=== PATIENT | male | born 1965 | race Caucasian/White ===

== ENCOUNTER 2024-06-11 07:30 | Outpatient (OUT) | payer BC, SELFPAY ==
--- NOTE | 2024-06-11 | ECG_ITS ---
[facility] Test Date: 2024-06-11 Pat Name: BRITTANY CABALLERO Department: Room: - Gender: Male Manager Mall: : 1965 Requested By: WEI VANCE Order Number: [id number] Reading MD: JULIO TAM Measurements Intervals [place] Rate: 58 P: 69 DC: 217 QRS: 18 QRSD: 93 T: 43 QT: 418 QTc: 414 Interpretive Statements SINUS BRADYCARDIA WITH FIRST DEGREE AV BLOCK Compared to ECG 09/05/2021 13:36:19 First degree AV block now present Sinus rhythm no longer present Myocardial infarct finding no longer present Electronically Signed On 06-11-2024 17:51:30 EDT by JULIO TAM
== END 2024-06-11 07:31 | disposition home or self-care (01) ==
LOC: CARD 07:34
PROVIDERS: PCP Family Medicine; Visit Provider Family Medicine
DX: R00.9 Unspecified abnormalities of heart beat (principal); I10 Essential (primary) hypertension
CPT/HCPCS: 93005

== ENCOUNTER 2024-11-06 12:26 | Outpatient (OUT) | payer BC, SELFPAY ==
--- OUTSIDE RECORDS SUMMARY | 2024-11-06 12:50 | XMS_ITS | CCD ---
Author Organization [facility]ini[facility] Care Team Providers Care Fire Medic Name Role Phone ROSHAN BUTLER Attending Unavailable REQUEST, NONE LISTED Primary Care Unavaila raquel PANDEY, DR BRITTANY Bustillo Consulting Unavailable ROSHAN BUTLER Admitting Unavailable TRAV, DR DEANDRA Wells Consulting Unavailable ROSHAN BUTLER Consulting Unavailable DIPTI GREGG Consulting Unavailable REQUEST, NONE LISTED Primary Care Unavaila KARINA Varner Consulting Unavailable FAYA, AMAYA Admitting Unavailable SHAIKH WANG Attending Unavailable LUKE ROSHAN Consulting Unavailable ROBERT CURTIS Consulting Unavailable Damaso Kramer Consulting Unavailable FAWWAD, AMAYA Consulting Unavailable Marisol Powers Unavailable Nithin Bonds Unavailable John Banda Unavailable Robert Espinoza Unavailable Edel Franklin Unavailable Pat Vance Unavailable MD Pat Vance Primary Care Provider [phone] MD Pat Vance Attending Provider [phone] Pat Vance Attending Unavailable Pat Vance Primary Care Unavailable Pat Vance Admitting Unavailable PAT VANCE Primary Care Physician MD JANIA WILLIAM Attending Unav PAT Regalado Referring Unavailable MD JANIA WILLIAM Attending Camiv MD JANIA Posada Attending Unav ailLM Patel Attending Unavailable Allergies Allergy Classification Reported Allergen(s) Allergy Type Date of Onset Reaction(s) Facility (5 sources) Penicillins; Translations: [penicillins] Drug allergy (disorder) 4 Weal (disorder) [facility] Repository Medications Current Medications Medication Drug Class(es) Dates Sig (Normalized) Sig (Original) amoxicillin 875 mg oral tablet (2 sources) Penicillin-class Antibacterial Start: 08-05-2022 take 1 tablet by mouth every eight hours Amoxicillin 875 MG 1 tablet Orally every 8 hrs for 10 day(s) Jul, Active Augmentin Tablets 875 MG (2 sources) take 1 tablet by mouth twice dari ly Augmentin Tablets 875 MG 1 tab po bid Active buprenorphine 8 mg / naloxone 2 mg sublingual film (7 sources) Partial Opioid Agonist, Opioid Antagonist Start: 08-25-2018 Buprenorphine-Naloxo ne Active 1.5 FILM SUBLINGUAL Twice daily August 25, 2018 12:00am take 1 tablet by jer th every twenty-four hours Buprenorphine HCl-Naloxone HCl 8-2 MG 1 tablet under the tongue and allow to dissolve Sublingual Once a day Active take 1 tablet by jer th every twenty-four hours chlorhexidine gluconate 1.2 mg/ml mouthwash (3 sources) Start: 08-05-2022 take 10 mL by mouth twice daily Peridex 0.12 % gargle 10 ml Mouth/Throat twice daily Jul, Active Start: 09-13-2021 End: 06-01-2024 Chlorhexidine Gluconate (Per idex) 0.12 % mouthwash Discontinued 15 ML BUCCAL Twice daily 600 September 13, 2021 1:00am June 01, 2024 10:05am Use 15 to 20 cc twice a day, oral rinse for 30 seconds until seen by dentist metoprolol tartrate 50 mg oral tablet (12 sources) beta-Adrenergic Anthony Start: 07-27-2024 take 1 mg by mouth twice daily Metoprolol tartrate 50 mg Tab mg tab(s), Oral, BID, Refills(s) 0 Start Date: 07/27/24 Status: Ordered Start: 06-01-2024 take 50 mg by mouth once daily Metoprolol Succinate Active 50 MG PO Daily 90 June 01, 2024 12:00am Start: 08-25-2018 End: 06-01-2024 take 50 mg by mouth twice daily Metoprolol Tartrate Discontinued 50 MG PO Twice daily August 25, 2018 12:00am June 01, 2024 10:22am Metoprolol Succi ana Active tadalafil 2.5 mg oral tablet (10 sources) Phosphodiesterase 5 Inhibitor Start: 07-27-2024 tadalafil 2.5 mg oral tablet Refills(s) 0 Start Date: 07/27/24 Status: Ordered Start: 06-01-2024 take 1 tablet by jer th once daily Tadalafil Active 0 .ROUTE .COMPLEX June 01, 2024 10:22am TAKE 1 TABLET BY MOUTH EVERY DAY Start: 01-08-2024 End: 06-01-2024 take 1 tablet by mouth once daily Tadalafil Discontinued 0 .ROUTE .COMPLEX January 08, 2024 2:40pm June 01, 2024 10:27am TAKE 1 TABLET BY MOUTH EVERY DAY Start: 01-08-2024 End: 01-08-2024 take 2.5 mg by mouth once daily Tadalafil Discontinued 2.5 MG PO Daily January 08, 2024 12:00am January 08, 2024 2:40pm take 1 tablet by jer th once daily Tadalafil 2.5 MG TAKE 1 TABLET BY MOUTH EVERY DAY for 30 Active Completed/Discontinued Medications Medication Drug Class(es) Dates Sig (Normalized) Sig (Original) acetaminophen 325 mg / oxyCODONE hydrochloride 5 mg oral tablet (1 source) Opioid Agonist Start: 09-13-2021 End: 06-01-2024 take 1 tablet by mouth every six hours Oxycodone-Acetamin ophen Discontinued 1 TAB PO Q6H 7 7 September 13, 2021 June 01, 2024 10:05am allopurinol 300 mg oral tablet (8 sources) Xanthine Oxidase Inhibitor Start: 09-07-2021 End: 06-01-2024 take 300 mg by mouth once daily Allopurinol Discontinued 300 MG PO Daily September 07, 2021 1:00am June 01, 2024 10:06am Allopurinol Acti ve amoxicillin 875 mg / clavulanate 125 mg oral tablet (1 source) Penicillin-class Antibacterial Start: 09-13-2021 End: 06-01-2024 take 1 tablet by mouth twice daily Amoxicillin-Pot Clavulanate (Augmentin) 875-125 mg tablet Discontinued 1 TAB PO Twice daily 80 40 September 13, 2021 1:00am June 01, 2024 10:04am ibuprofen 600 mg oral tablet (3 sources) Nonsteroidal Anti-inflammatory Drug Start: 05-29-2024 End: 06-01-2024 take 1 tablet by mouth three times daily at mealtime as needed Ibuprofen Discontinued 600 MG PO Three times daily May 29, 2024 12:00am June 01, 2024 10:05am FreeTextSi tablet with food or milk as needed Orally Three times a day; Note: Source Status: Start; Qty: 21 Tablet; Provider: Rigoberto Quinn Start: 08-05-2022 take 1 tablet by jer three times daily at mealtime as needed Ibuprofen 600 MG 1 tablet with food or milk as needed Orally Three times a day for 7 days Jul, Active tamsulosin hydrochloride 0.4 mg oral capsule (8 sources) alpha-Adrenergic Anthony Start: 09-07-2021 End: 06-01-2024 take 0.4 mg by mouth once daily Tamsulosin Discontinued 0.4 MG PO Daily September 07, 2021 1:00am June 01, 2024 10:06am Tamsulosin HCl A ctive triamcinolone acetonide 40 mg/ml injectable suspension (7 sources) Corticosteroid Start: 01-30-2022 Kenalog -40 mg Jan, 40 mg Start: 01-16-2022 Kenalog-40 Jan, 40 mg Start: 01-16-2022 Kenalog -40 mg Dec, 40 mg Problems Active Problems Problem Classification Problem Date Documented Date Episodic/Chronic Disorders of teeth and jaw (1 source) Periapical abscess without sinus Episodic Essential hypertension (7 sources) Essential (primary) hypertension; Translations: [Hypertensive disorder] Onset: 09-25-2021 06-01-2024 Chronic Gout and other crystal arthropathies (2 sources) Gout, unspecified; Translations: [Gout] Onset: 08-30-2021 10-09-2023 Chronic Heart valve disorders (6 sources) Abnormal cardiac rate; Translations: [Unspecified abnormalities of heart beat] Onset: 06-01-2024 06-01-2024 Episodic Hyperplasia of prostate (5 sources) Large prostate ; Translations: [Benign prostatic hyperplasia without lower urinary tract symptoms] Onset: 07-27-2024 10-09-2023 Chronic Osteoarthritis (6 sources) Primary gonarthrosis, bilateral; Translations: [Bilateral primary osteoarthritis of knee] Onset: 01-16-2022 Resolved: 01-30-2022 Chronic Other aftercare (1 source) Other intermediate (current) drug therapy; Translations: [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] Onset: 08-30-2021 Episodic Other connective tissue disease (1 source) Presence of left artificial hip joint; Translations: [PRESENCE LEFT ARTIFICIAL HIP JOINT] Onset: 09-25-2021 Chronic Other lower respiratory disease (1 source) Personal history of pneumonia (recurrent); Translations: [PERSONAL HX OF PNEUMONIA RECURRENT] Onset: 09-25-2021 Episodic Other lower respiratory disease (3 sources) Dyspnea, unspecified; Translations: [DYSPNEA UNSPECIFIED] Onset: 08-22-2021 Episodic Other male genital disorders (5 sources) Induratio penis plastica; Translations: [Induration penis plastica] Onset: 07-27-2024 06-01-2024 Chronic Other male genital disorders (1 source) Induration penis plastica; Translations: [Peyronie's disease] 06-01-2024 Chronic Other male genital disorders (4 sources) Hemospermia; Translations: [Hematospermia] Onset: 07-27-2024 Episodic Other screening for suspected conditions (not mental disorders or infectious disease) (1 source) Other specified abnormal findings of blood chemistry; Translations: [OTH SPEC ABNORMAL FINDINGS BLD CHEM] Onset: 08-30-2021 Episodic Pleurisy; pneumothorax; pulmonary collapse (6 sources) Pyothorax without fistula; Translations: [Empyema of pleura] Onset: 09-25-2021 Resolved: 10-18-2021 Episodic Pneumonia (except that caused by tuberculosis or sexually transmitted disease) (5 sources) Pneumonia, unspecified organism; Translations: [Unspecified bacterial pneumonia] Onset: 08-30-2021 Resolved: 10-18-2021 Episodic Residual codes; unclassified (1 source) Personal history of other specified conditions; Translations: [PERSONAL HISTORY OTH SPEC CONDITION] Onset: 08-30-2021 Episodic Respiratory failure; insufficiency; arrest (adult) (1 source) Acute respiratory failure with hypoxia; Translations: [ACUTE RESPIRATORY FAIL W/HYPOXIA] Onset: 09-25-2021 Episodic Substance-related disorders (2 sources) Opioid abuse, in remission; Translations: [Opioid abuse, uncomplicated] Onset: 08-30-2021 Chronic Unclassified (1 source) PERSONAL HISTORY OF COVID-19; Translations: [PERSONAL HISTORY OF COVID-19] Onset: 09-25-2021 Unclassified (1 source) POST COVID-19 CONDITION UNSPECIFIED; Translations: [POST COVID-19 CONDITION UNSPECIFIED] Onset: 08-30-2021 Unclassified (1 source) CONTACT W/AND (SUSP) EXPOS COVID-19; Translations: [CONTACT W/AND (SUSP) EXPOS COVID-19] Onset: 08-30-2021 Past or Other Problems Problem Classification Problem Date Documented Da te Episodic/Chronic Immunizations and screening for infectious disease (1 source) Contact with and (suspected) exposure to other viral communicable diseases; Translations: [Contact with and (suspected) exposure to other viral communicable diseases Z20.828] Onset: 08-16-2021 Resolved: 08-16-2021 Episodic Other non-traumatic joint disorders (1 source) Pain in right knee Onset: 01-16-2022 Resolved: 01-16-2022 Episodic Other non-traumatic joint disorders (1 source) Pain in left knee Onset: 01-16-2022 Resolved: 01-16-2022 Episodic Viral infection (1 source) Disease caused by 2019-nCoV; Translations: [COVID-19] Onset: 07-28-2021 10-09-2023 Episodic Viral infection (1 source) COVID-19; Translations: [COVID-19 U07.1] Onset: 08-16-2021 Resolved: 08-16-2021 Results Test Name Value Interpretation Reference Range [facility] Patient Letter [facility] August 10, 2024 BRITTANY CABALLERO [address] [place] [phone] : 1965 Dear Brittany, You missed your 2nd scheduled appointment with Dr Casey on 08/10/24 at 8am. Please note our appointment slots fill quickly. When you fail to cancel or reschedule an appointment the office is unable to fill the appointment slot that was reserved for you. In the future, we ask that you call 24 hours in advance to cancel your appointment. Our current reminder system gives you the opportunity to cancel by responding to our reminder text, phone call or email. You can also call the office to reschedule during normal business hours or use our on-line scheduling portal at your convenience. Our goal is to provide convenient and quality care to all of our patients. We appreciate your consideration regarding any future cancellations. Sincerely, [facility] [phone] x [phone] Patient did cancel his appointment through the automated reminder system, but it was not seen until after his appointment was passed. [facility] Patient Letter [facility] August 03, 2024 BRITTANY CABALLERO [address] [place] [id number] : 1965 Dear Brittany, You missed your scheduled appointment on August 03, 2024 at 9:30am with Dr Casey. Please note our appointment slots fill quickly. When you fail to cancel or reschedule an appointment the office is unable to fill the appointment slot that was reserved for you. In the future, we ask that you call 24 hours in advance to cancel your appointment. Our current reminder system gives you the opportunity to cancel by responding to our reminder text, phone call or email. Our goal is to provide convenient and quality care to all of our patients. We appreciate your consideration regarding any future cancellations. Please call [phone] to reschedule your appointment. Sincerely, [facility] [address] [place] [address] [facility] Ambulatory Visit Summaryon 0 07-27-2024 Ambulatory Visit Summary Ambulatory Visit Summary BRITTANY CABALLERO JR :1965 Visit Date:07/27/2024 Ambulatory Visit Instructions Your Diagnosis Peyronie's disease Hematospermia BPH with urinary obstruction Your Care Team Attending Physician - STEWART TAYLOR, JANIA Primary Care Physician - PAT VANCE MD Referring Physician - PAT VANCE MD This Is Your Medications List Contact prescribing physician if questions or concerns metoprolol (Metoprolol tartrate 50 mg Tab) tadalafil (tadalafil 2.5 mg oral tablet) Procedures Performed Arthroplasty, Hip replacement, Procedure on rectum. Discharge Vitals Blood Pressure 130/82 Height 170 cm Height 67 in Weight 90.5 kg Weight 199.1 lb BMI 31.31 What to do next You Need to Schedule the Following Appointments Follow Up with STEWART TAYLOR, SRINIVASAN DYKES When: Where: Medications What How Much When Instructions Unchanged metoprolol (Metoprolol tartrate 50 mg Tab) 2 times a day Contact prescribing physician if questions or concerns Unchanged tadalafil (tadalafil 2.5 mg oral tablet) Contact prescribing physician if questions or concerns Allergies penicillins (Hives) Problems Ongoing - Any problem that you are currently receiving treatment for. Abnormal heart rate BPH with urinary obstruction Hematospermia Hypertension Peyronie's disease Patient Survey You may receive a survey via text or e-mail asking about your office visit. Please share your experience with us by completing your survey. We appreciate your feedback and thank you for choosing us for your care. Education Materials Prostate-Specific Antigen Test Why am I having this test? The prostate-specific antigen (PSA) test is a screening test for prostate cancer. It can identify early signs of prostate cancer, which may allow for early detection and more effective treatment. Your health care provider may recommend that you have a PSA test starting at age 50 or that you have one earlier if you are at higher risk for prostate cancer. You may also have a PSA test: ? To monitor treatment of prostate cancer. ? To check whether prostate cancer has returned after treatment. What is being tested? This test measures the amount of PSA in your blood. PSA is a protein that is made in the prostate. The prostate naturally produces more PSA as you age, but very high levels may be a sign of a medical condition. What kind of sample is taken? A blood sample is required for this test. It is usually collected by inserting a needle into a blood vessel but can also be collected by sticking a finger with a small needle. Blood for this test should be drawn before having an exam of the prostate that involves digital rectal examination to avoid affecting the results. How do I prepare for this test? Do not ejaculate starting 24 hours before your test, or as long as told by your health care provider, as this can cause an elevation in PSA. Do not undergo any procedures that require manipulation of the prostate, such as biopsy or surgery, for 6 weeks before the test is done as this can cause an elevation in PSA. Tell a health care provider about: ? Any signs you may have of other conditions that can affect PSA levels, such as: ? An enlarged prostate that is not caused by cancer (benign prostatic hyperplasia, or BPH). This condition is very common in older men. ? A prostate or urinary tract infection. ? Any allergies you have. ? All medicines you are taking, including vitamins, herbs, eye drops, creams, and [id number]-[id number] medicines. This also includes: ? Medicines to assist with hair growth, such as finasteride. ? Any recent exposure to a medicine called diethylstilbestrol (BRIDGETT). ? Medicines such as male hormones (like testosterone) or other medicines that raise testosterone levels. ? Any bleeding problems you have. ? Any recent procedures you have had, especially any procedures involving the prostate or rectum. ? Any medical conditions you have. How are the results reported? Your test results will be reported as a value that indicates how much PSA is in your blood. This will be given as nanograms of PSA per milliliter of blood (ng/mL). Your health care provider will compare your results to normal ranges that were established after testing a large group of people (reference ranges). Reference ranges may vary among labs and hospitals. PSA levels vary from person to person and generally increase with age. Because of this variation, there is no single PSA value that is considered normal for everyone. Instead, PSA reference ranges are used to describe whether your PSA levels are considered low or high (elevated). Common reference ranges are: ? Low: 0?2.5 ng/mL. ? Slightly to moderately elevated: 2.6?10.0 ng/mL. ? Moderately elevated: 10.0?19.9 ng/mL. ? Significantly elevated: 20 ng/mL or greater. What do t (more content not included)... Normal [facility] Urology Office/Clinic Noteon 07-27-2024 Urology Office/Clinic Note Urology Office/Clinic Note Chief Complaint peyronies HPI Staff 58 year old male referred by Dr. Vance for Peyronie's disease and induration penis plastica patient takes tadalafil 2.5mg every day . Dysuria: no Incomplete bladder emptying: no Hematuria: no Frequency: no Urgency: no Nocturia: 2x Stream:good stream Leaking: no Post void dripping: no Wearing pads/ Depends: no Urge incontinence: no Stress incontinence: no Incontinence without Sensory Awareness: no Abdominal pain: no Flank pain: no Sexual complaints: pt states that for a few months he has noticed his penis curves to the left, states at first he was able to have intercourse now he is unable to due to the curvature. Denies any pain with erections. History of Present Illness Tests reviewed: reviewed UA and new patient paperwork. I have reviewed the previous health record information and history for this patient from external provider. I have reviewed and verified the staff HPI to be accurate for this encounter. There have been no associated fever, chills, flank pain, or blood in the urine. Denies any urinary infections since last encounter. Review of Systems PHQ Score Initial Depression Screen Score: 0 SCORE ROS - Provider Constitutional: denies weight loss, denies hot flashes. Eyes: denies eye problems. Gastrointestinal: denies nausea, denies vomiting. Cardiovascular: denies chest pain or angina. Integumentary: no dryness Musculoskeletal: denies musculoskeletal symptoms. ENMT: denies otolaryngeal symptoms. Respiratory: no shortness of breath. Heme/Lymph: denies easy bleeding tendency, denies easy bruising tendency. Psychiatric: no confusion, no anxiety. Genitourinary: See HPI. Physical Exam Vitals & Measurements BP: 130/82 HT: 67 in HT: 170 cm WT: 90.5 kg WT: 199.1 lb BMI: 31.31 General Appearance: alert, no distress, well nourished, well developed male. Head: normocephalic . Eyes: normal orbit and globe. ENMT: normal examination of external ears. Genitourinary: Descended BL testes. Normal scrotum. Penis: Circumcised. Descended BL testes. Difficult to examine the severity of curvature without penis being erect. Lymph nodes: no lymphadenopathy. Skin: warm, dry, no bruising. Psychiatric: cooperative, affect appropriate for age, normal judgement, euthymic mood. Assessment/Plan [address] male referred by Dr[address] Vance for Peyronie's Disease and induration penis plastica. Denies hx of kidney stones. Hx of anal fistula. Portions of this record may have been created with voice recognition artificial intelligence software, specifically [employer], [employer] and or [employer]. Substitutions may have occurred due to the inherent limitations of voice recognition and artificial intelligence software. 1. 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 Denies issues with achieving or maintaining erections. Pt states he has always noticed a left sided curvature but it has been very mild, has not had any issues with having intercourse. He has noticed that the curvature has become severe over the last 3-4 months. Denies known trauma. Denies painful intercourse, states that it is not functional . Unable to have intercourse now due to the severity of the curvature. Pt states he has not been able to have intercourse the last few months. Physical exam ~Circumcised. Descended BL testes. Difficult to examine the severity of curvature without the penis being erect. Discussed the possibility of pt having congenital penile curvature. Educated pt on the difference between acute and chronic phase of Peyronie's. Discussed treatment options such as Xiafelx vs surgical management. Counseled on risks and benefits of each. Advised pt to take pictures of the curvature to show me at the next office visit. Educated pt on how to use ruler. Consider artificial erection at next visit if pictures are not sufficient. -Follow up in 1 week 2. Hematospermia (R36.1: Hematospermia) Notices blood in semen intermittently. Denies gross hematuria. UA today negative. 3. BPH with urinary obstruction (N40.1: Benign prostatic hyperplasia with lower urinary tract symptoms) Has not had his PSA checked. Denies family history of prostate CA. Family hx of lung cancer. IPSS 8. UA today negative for infection or blood. Taking Cialis 2.5mg qd for ED. -Will order PSA to be done soon Follow-up With When Contact Information STEWART TAYLOR, JANIA, URL Additional Instructions: 1 week Patient Education Prostate-Specific Antigen Test Patient is a 58-year-old male presenting with new onset concern for Peyronie's disease. Patient states that it developed approximately 3 months ago, no concomitant erectile dysfunction, no pain on intercourse. He states that the curvature is left-sided deviation and is prohibitive for intercourse. He notes intermit (more content not included)... Normal [facility] Comment on above: Result Comment: Elec tronically Signed By: STEWART TAYLORJANIA\.br\Date and Time Signed: 07/27/24 09:47 EDT\.br\Electronically Co-Signed By: Mitzy Grissom\.br\Date and Time Co-Signed: 07/27/24 09:40 EDT CBC AUTO DIFFon 09-07-2021 BASO # 0.0 103/ul Normal 0.0-0.1 [facility] Comment on above: Performed By: #### L ACT #### [facility] [address] [address] [address] Thomas Reina Basophils/100 WBC (Bld) 0.3 % Normal 0.2-2.0 [facility] Comment on above: Performed By: #### L ACT #### [facility] [address] [address] [address] Thomas Reina EO # 0.1 103/ul Normal 0.0-0.7 [facility] Comment on above: Performed By: #### L ACT #### [facility] [address] [address] [address] Thomas Reina Eosinophils/100 WBC (Bld) 0.6 % Critically low 0.9-7.0 [facility] Comment on above: Performed By: #### L ACT #### [facility] [address] [address] [address] Thomas Reina Erythrocyte distribution width (RBC) [Ratio] 13.7 % Normal 11.0-15.0 [facility] Comment on above: Performed By: #### L ACT #### [facility] [address] [address] [address] Thomas Reina Hematocrit (Bld) [Volume fraction] 31.3 % Critically low 42.0-54.0 [facility] Comment on above: Performed By: #### L ACT #### [facility] [address] [address] [address] Thomas Reina Hemoglobin (Bld) [Mass/Vol] 9.8 g/dL Critically low 14.0-18.0 [facility] Comment on above: Performed By: #### L ACT #### [facility] [address] [address] [address] Thomas Reina IG # 0.13 10e3/ul Critically high 0.00-0.03 [facility] Comment on above: Performed By: #### L ACT #### [facility] [address] [place] [address] Dr. Thomas Reina IG % 0.9 % Critically high 0.0-0.5 [facility] Comment on above: Performed By: #### L ACT #### [facility] [address] [place] [address] Dr. Thomas Reina LYMPH # 1.4 103/ul Normal 1.2-3.8 [facility] Comment on above: Performed By: #### L ACT #### [facility] [address] [place] [address] Dr. Thomas Reina Lymphocytes/100 WBC (Bld) 9.2 % Critically low 20.5-60.0 [facility] Comment on above: Performed By: #### L ACT #### [facility] [address] [place] [address] Dr. Thomas Reina MANUAL DIFF REQ NO Normal [facility] Comment on above: Performed By: #### L ACT #### [facility] [address] [place] [address] Dr. Thomas Reina MCH (RBC) [Entitic mass] 27.6 pg Normal 25.9-34.0 [facility] Comment on above: Performed By: #### L ACT #### [facility] [address] [place] [address] Dr. Thomas Reina MCHC (RBC) [Mass/Vol] 31.3 g/dL Normal 29.9-35.2 [facility] Comment on above: Performed By: #### L ACT #### [facility] [address] [place] [address] Dr. Thomas Reina MCV (RBC) [Entitic vol] 88.2 fL Normal 80.0-94.0 [facility] Comment on above: Performed By: #### L ACT #### [facility] [address] [place] [address] Dr. Thomas Reina MONO # 1.1 103/ul Critically high 0.3-0.8 [facility] Comment on above: Performed By: #### L ACT #### [facility] [address] [address] [address] Thomas Reina Monocytes/100 WBC (Bld) 7.3 % Normal 1.7-12.0 [facility] Comment on above: Performed By: #### L ACT #### [facility] [address] [address] [address] Thomas Reina NEUT # 12.4 103/ul Critically high 1.4-6.5 [facility] Comment on above: Performed By: #### L ACT #### [facility] [address] [place] [address] Dr. Thomas Reina Neutrophils/100 WBC (Bld) 81.7 % Critically high 43.0-75.0 [facility] Comment on above: Performed By: #### L ACT #### [facility] [address] [place] [address] Dr. Thomas Reina Platelet mean volume (Bld) [Entitic vol] 10.5 fL Normal 9.5-13.5 [facility] Comment on above: Performed By: #### L ACT #### [facility] [address] [place] [address] Dr. Thomas Reina PLT 314 103/ul Normal 150-450 [facility] Comment on above: Performed By: #### L ACT #### [facility] [address] [place] [address] Dr. Thomas Reina RBC 3.55 106/ul Critically low 4.70-6.10 [facility] Comment on above: Performed By: #### L ACT #### [facility] [id number] Thomas Reina WBC 15.1 103/ul Critically high 4.0-11.0 [facility] Comment on above: Performed By: #### L ACT #### [facility] [address] [place] [address] Dr. Thomas Reina PROF CHEM 8 (BAS METB)on Anion gap [Moles/Vol] 10.5 mmol/L Normal [facility] Comment on above: Performed By: #### L IPA #### [facility] [address] [address] [address] Thomas Reina Calcium [Mass/Vol] 8.1 mg/dL Critically low 8.4-10.2 [facility] Comment on above: Performed By: #### L IPA #### [facility] [address] [place] [address] Dr. Thomas Reina Chloride [Moles/Vol] 102 mmol/L Normal 98-107 [facility] Comment on above: Performed By: #### L IPA #### [facility] [address] [place] [address] Dr. Thomas Reina CO2 [Moles/Vol] 27.1 mmol/L Normal 22.0-30.0 [facility] Comment on above: Performed By: #### L IPA #### [facility] [address] [place] [address] Dr. Thomas Reina Creatinine [Mass/Vol] 0.61 mg/dL Critically low 0.66-1.25 [facility] Comment on above: Performed By: #### L IPA #### [facility] [address] [place] [address] Dr. Thomas Reina EGFR-AF CYMRAES >60 Normal >=60 [facility] Comment on above: Performed By: #### L IPA #### [facility] [address] [place] [address] Dr. Thomas Reina EGFR-NON AF CYMRAES >60 Normal >=60 [facility] Comment on above: Performed By: #### L IPA #### [facility] [address] [place] [address] Dr. Thomas Reina Glucose [Mass/Vol] 110 mg/dL Critically high 74-106 [facility] Comment on above: Performed By: #### L IPA #### [facility] [address] [place] [address] Dr. Thomas Reina Potassium [Moles/Vol] 3.6 mmol/L Normal 3.4-5.0 [facility] Comment on above: Performed By: #### L IPA #### [facility] [address] [address] [address] Thomas Reina Sodium [Moles/Vol] 136 mmol/L Critically low 137-145 [facility] Comment on above: Performed By: #### L IPA #### [facility] [address] [place] [address] Dr. Thomas Reina Urea nitrogen [Mass/Vol] 8.0 mg/dL Critically low 9.0-20.0 [facility] Comment on above: Performed By: #### L IPA #### [facility] [address] [place] [address] Dr. Thomas Reina Urea nitrogen/Creatinine [Mass ratio] 13.1 mg/mg Normal [facility] Comment on above: Performed By: #### L IPA #### [facility] [address] [place] [address] Dr. Thomas Reina VANCOMYCIN TROUGHon 09-07-20 VANCOMYCIN TROUGH 10.1 ug/ml Normal 5.0-20.0 [facility] Comment on above: Performed By: #### C BC #### [facility] [address] [place] [address] Dr. Thomas Reina CBC AUTO DIFFon 09-06-2021 BASO # 0.0 103/ul Normal 0.0-0.1 [facility] Comment on above: Performed By: #### C BC #### [facility] [address] [place] [address] Dr. Thomas Reina Basophils/100 WBC (Bld) 0.2 % Normal 0.2-2.0 [facility] Comment on above: Performed By: #### C BC #### [facility] [address] [place] [address] Dr. Thomas Reina EO # 0.0 103/ul Normal 0.0-0.7 [facility] Comment on above: Performed By: #### C BC #### [facility] [address] [place] [address] Dr. Thomas Reina Eosinophils/100 WBC (Bld) 0.0 % Critically low 0.9-7.0 [facility] Comment on above: Performed By: #### C BC #### [facility] [address] [place] [address] Dr. Thomas Reina Erythrocyte distribution width (RBC) [Ratio] 13.6 % Normal 11.0-15.0 [facility] Comment on above: Performed By: #### C BC #### [facility] [address] [place] [address] Dr. Thomas Reina Hematocrit (Bld) [Volume fraction] 32.5 % Critically low 42.0-54.0 [facility] Comment on above: Performed By: #### C BC #### [facility] [address] [place] [address] Dr. Thomas Reina Hemoglobin (Bld) [Mass/Vol] 10.6 g/dL Critically low 14.0-18.0 [facility] Comment on above: Performed By: #### C BC #### [facility] [address] [place] [address] Dr. Thomas Reina IG # 0.11 10e3/ul Critically high 0.00-0.03 [facility] Comment on above: Performed By: #### C BC #### [facility] [address] [place] [address] Dr. Thomas Reina IG % 0.6 % Critically high 0.0-0.5 [facility] Comment on above: Performed By: #### C BC #### [facility] [address] [place] [address] Dr. Thomas Reina LYMPH # 1.1 103/ul Critically low 1.2-3.8 [facility] Comment on above: Performed By: #### C BC #### [facility] [address] [place] [address] Dr. Thomas Reina Lymphocytes/100 WBC (Bld) 6.2 % Critically low 20.5-60.0 [facility] Comment on above: Performed By: #### C BC #### [facility] [address] [place] [address] Dr. Thomas Reina MANUAL DIFF REQ NO Normal [facility] Comment on above: Performed By: #### C BC #### [facility] [address] [address] [address] Thomas Reina MCH (RBC) [Entitic mass] 28.6 pg Normal 25.9-34.0 [facility] Comment on above: Performed By: #### C BC #### [facility] [address] [address] [address] Thomas Reina MCHC (RBC) [Mass/Vol] 32.6 g/dL Normal 29.9-35.2 [facility] Comment on above: Performed By: #### C BC #### [facility] [address] [address] [address] Thomas Reina MCV (RBC) [Entitic vol] 87.6 fL Normal 80.0-94.0 [facility] Comment on above: Performed By: #### C BC #### [facility] [address] [place] [address] Dr. Thomas Reina MONO # 0.8 103/ul Normal 0.3-0.8 [facility] Comment on above: Performed By: #### C BC #### [facility] [address] [place] [address] Dr. Thomas Reina Monocytes/100 WBC (Bld) 4.6 % Normal 1.7-12.0 [facility] Comment on above: Performed By: #### C BC #### [facility] [address] [address] [address] Thomas Reina NEUT # 15.5 103/ul Critically high 1.4-6.5 [facility] Comment on above: Performed By: #### C BC #### [facility] [address] [address] [address] Thomas Reina Neutrophils/100 WBC (Bld) 88.4 % Critically high 43.0-75.0 [facility] Comment on above: Performed By: #### C BC #### [facility] [address] [place] [address] Dr. Thomas Reina Platelet mean volume (Bld) [Entitic vol] 10.8 fL Normal 9.5-13.5 [facility] Comment on above: Performed By: #### C BC #### [facility] [address] [address] [address] Thomas Reina PLT 332 103/ul Normal 150-450 [facility] Comment on above: Performed By: #### C BC #### [facility] [address] [address] [address] Thomas Reina RBC 3.71 106/ul Critically low 4.70-6.10 [facility] Comment on above: Performed By: #### C BC #### [facility] [address] [address] [address] Thomas Reina WBC 17.6 103/ul Critically high 4.0-11.0 [facility] Comment on above: Performed By: #### C BC #### [facility] [address] [place] [address] Dr. Thomas Reina PROF CHEM 8 (BAS METB)on Anion gap [Moles/Vol] 14.0 mmol/L Normal [facility] Comment on above: Performed By: #### C BC #### [facility] [address] [place] [address] Dr. Thomas Reina Calcium [Mass/Vol] 8.9 mg/dL Normal 8.4-10.2 [facility] Comment on above: Performed By: #### C BC #### [facility] [address] [address] [address] Thomas Reina Chloride [Moles/Vol] 100 mmol/L Normal 98-107 [facility] Comment on above: Performed By: #### C BC #### [facility] [address] [address] [address] Thomas Reina CO2 [Moles/Vol] 24.3 mmol/L Normal 22.0-30.0 [facility] Comment on above: Performed By: #### C BC #### [facility] [address] [place] [address] Dr. Thomas Reina Creatinine [Mass/Vol] 0.64 mg/dL Critically low 0.66-1.25 [facility] Comment on above: Performed By: #### C BC #### [facility] [address] [address] [address] Thomas Reina EGFR-AF CYMRAES >60 Normal >=60 [facility] Comment on above: Performed By: #### C BC #### [facility] [address] [address] [address] Thomas Reina EGFR-NON AF CYMRAES >60 Normal >=60 [facility] Comment on above: Performed By: #### C BC #### [facility] [address] [address] [address] Thomas Reina Glucose [Mass/Vol] 155 mg/dL Critically high 74-106 [facility] Comment on above: Performed By: #### C BC #### [facility] [address] [address] [address] Thomas Reina Potassium [Moles/Vol] 4.3 mmol/L Normal 3.4-5.0 [facility] Comment on above: Performed By: #### C BC #### [facility] [address] [place] [address] Dr. Thomas Reina Sodium [Moles/Vol] 134 mmol/L Critically low 137-145 [facility] Comment on above: Performed By: #### C BC #### [facility] [address] [place] [address] Dr. Thomas Reina Urea nitrogen [Mass/Vol] 9.0 mg/dL Normal 9.0-20.0 [facility] Comment on above: Performed By: #### C BC #### [facility] [address] [place] [address] Dr. Thomas Reina Urea nitrogen/Creatinine [Mass ratio] 14.1 mg/mg Normal [facility] Comment on above: Performed By: #### C BC #### [facility] [address] [place] [address] Dr. Thomas Reina CBC W MANUAL DIFFon 09-05-20 21 ANISOCYTOSIS SLIGHT Normal [facility] Comment on above: Performed By: #### C BC #### [facility] [address] [place] [address] Dr. Thomas Reina ATYPICAL LYMPH # Normal [facility] Comment on above: Performed By: #### C BC #### [facility] [address] [address] [address] Thomas Reina ATYPICAL LYMPH % Normal [facility] Comment on above: Performed By: #### C BC #### [facility] [address] [address] [address] Thomas Reina BAND # 0.5 103/ul Critically high 0.0-0.3 [facility] Comment on above: Performed By: #### C BC #### [facility] [address] [address] [address] Thomas Reina BAND % 2 % Normal 0-5 [facility] Comment on above: Performed By: #### C BC #### [facility] [address] [place] [address] Dr. Thomas Reina BASOM # 0.23 103/ul Critically high 0.00-0.10 [facility] Comment on above: Performed By: #### C BC #### [facility] [address] [place] [address] Dr. Thomas Reina BASOM % 1.0 % Normal 0.2-2.0 [facility] Comment on above: Performed By: #### C BC #### [facility] [address] [place] [address] Dr. Thomas Reina BLAST # Normal [facility] Comment on above: Performed By: #### C BC #### [facility] [address] [place] [address] Dr. Thomas Reina BLAST % Normal [facility] Comment on above: Performed By: #### C BC #### [facility] [address] [address] [address] Thomas Reina CORRECTED WBC Normal 4.0-11.0 [facility] Comment on above: Performed By: #### C BC #### [facility] [address] [place] [address] Dr. Thomas Reina EOS # 0.00 103/ul Normal 0.00-0.70 [facility] Comment on above: Performed By: #### C BC #### [facility] [address] [address] [address] Thomas Reina EOS% 0.0 % Critically low 0.9-7.0 [facility] Comment on above: Performed By: #### C BC #### [facility] [address] [address] [address] Thomas Reina HCT 34.4 % Critically low 42.0-54.0 [facility] Comment on above: Performed By: #### C BC #### [facility] [address] [address] [address] Thomas Reina HGB 11.4 g/dl Critically low 14.0-18.0 [facility] Comment on above: Performed By: #### C BC #### [facility] [address] [place] [address] Dr. Thomas Reina LYMPHM # 1.38 103/ul Normal 1.20-3.80 [facility] Comment on above: Performed By: #### C BC #### [facility] [address] [place] [address] Dr. Thomas Reina LYMPHM% 6.0 % Critically low 20.5-60.0 [facility] Comment on above: Performed By: #### C BC #### [facility] [address] [place] [address] Dr. Thomas Reina MCH 28.1 pg Normal 25.9-34.0 [facility] Comment on above: Performed By: #### C BC #### [facility] [address] [place] [address] Dr. Thomas Reina MCHC 33.1 g/dl Normal 29.9-35.2 [facility] Comment on above: Performed By: #### C BC #### [facility] [address] [place] [address] Dr. Thomas Reina MCV 84.9 fL Normal 80.0-94.0 [facility] Comment on above: Performed By: #### C BC #### [facility] [address] [place] [address] Dr. Thomas Reina METAMYELOCYTE # Normal [facility] Comment on above: Performed By: #### C BC #### [facility] [address] [place] [address] Dr. Thomas Reina METAMYELOCYTE % Normal [facility] Comment on above: Performed By: #### C BC #### [facility] [address] [address] [address] Thomas Reina MONOM# 1.38 103/ul Critically high 0.30-0.80 [facility] Comment on above: Performed By: #### C BC #### [facility] [address] [address] [address] Thomas Reina MONOM% 6.0 % Normal 1.7-12.0 [facility] Comment on above: Performed By: #### C BC #### [facility] [address] [place] [address] Dr. Thomas Reina MPV 10.6 fL Normal 9.5-13.5 [facility] Comment on above: Performed By: #### C BC #### [facility] [address] [place] [address] Dr. Thomas Reina MYELOCYTE # Normal [facility] Comment on above: Performed By: #### C BC #### [facility] [address] [place] [address] Dr. Thomas Reina MYELOCYTE % Normal [facility] Comment on above: Performed By: #### C BC #### [facility] [address] [place] [address] Dr. Thomas Reina NRBC Normal [facility] Comment on above: Performed By: #### C BC #### [facility] [address] [place] [address] Dr. Thomas Reina PLT 426 103/ul Normal 150-450 [facility] Comment on above: Performed By: #### C BC #### [facility] [address] [place] [address] Dr. Thomas Reina RBC 4.05 106/ul Critically low 4.70-6.10 [facility] Comment on above: Performed By: #### C BC #### [facility] [address], [place] [address] Dr. Thomas Reina RDW 13.5 % Normal 11.0-15.0 [facility] Comment on above: Performed By: #### C BC #### [facility] [address], [place] [address] Dr. Thomas Reina SEG # 19.55 103/ul Critically high 1.40-6.50 [facility] Comment on above: Performed By: #### C BC #### [facility] [address], [place] [address] Dr[address] Thomas Reina SEG % 85.0 % Critically high 43.0-75.0 [facility] Comment on above: Performed By: #### C BC #### [facility] [address], [place] [address] Dr. Thomas Reina WBC 23.0 103/ul Critically high 4.0-11.0 [facility] Comment on above: Performed By: #### C BC #### [facility] [address] [place], [place] [address] Dr. Thomas Reina CTA CHEST WO W CONon 021 CTA CHEST WO W CON EXAMINATION: CTA pulmonary artery. HISTORY: Acute shortness of breath. History of recent Covid infection. COMPARISON: 08/22/2021. TECHNIQUE: Enhanced helical acquisition obtained through the pulmonary arteries. MIP reconstructions. FINDINGS: Interval development of a large loculated fluid and gas collection within the posterolateral right pleural space consistent with a large empyema measuring approximately 12.3 x 14.5 x 6.2 cm. Patchy peripheral airspace consolidation is present within the right lower lobe with overall improved aeration. However, interval development of patchy airspace opacification within the right middle lobe and right upper lobe consistent with multilobar pneumonia. Minimal scarring within the left lower lobe. There are borderline-enlarged mediastinal and right hilar lymph nodes, likely reactive. IMPRESSION: 1. Interval development of a large right empyema measuring 12.3 x 14.5 x 6.2 cm. 2. Patchy airspace opacities within the right lower lobe with overall interval improving aeration as compared to 08/22/2021. However, interval development of patchy airspace opacities within the right middle lobe and right upper lobe consistent with multilobar pneumonia. 3. Mildly enlarged mediastinal and right hilar lymph nodes, likely reactive. 4. No evidence of pulmonary arterial embolism. Electronically authenticated by: ROBERT CURTIS Date: 2021-09-05 20:28 Normal [facility] CULTURE BLOODon 09-05-2021 Microscopic examination of blood, culture Culture Observations: NO GROWTH AT 5 DAYS. Normal [facility] Comment on above: Performed By: #### C BC #### [facility] [address] [place] [address] Dr. Thomas Reina Microscopic examination of blood, culture Culture Observations: NO GROWTH AT 5 DAYS. Normal [facility] Comment on above: Performed By: #### C BC #### [facility] [address] [place] [address] Dr. Thomas Reina LACTATE/LACTIC ACIDon 2020 Lactate [Moles/Vol] 1.1 mmol/L Normal 0.7-2.0 [facility] Comment on above: Performed By: #### L ACT #### [facility] [address] [place] [address] Dr. Thomas Reina PROF 14(COMP METB)on 021 Albumin [Mass/Vol] 1.9 g/dL Critically low 3.5-5.0 [facility] Comment on above: Performed By: #### L IPA #### [facility] [address] [place] [address] Dr. Thomas Reina Albumin/Globulin [Mass ratio] 0.3 {ratio} [facility] Comment on above: Performed By: #### L IPA #### [facility] [address] [place] [address] Dr. Thomas Reina ALP [Catalytic activity/Vol] 195 U/L Critically high 38-126 [facility] Comment on above: Performed By: #### L IPA #### [facility] [address] [place] [address] Dr. Thomas Reina ALT [Catalytic activity/Vol] 27 U/L Normal 21-72 [facility] Comment on above: Performed By: #### L IPA #### [facility] [address] [address] [address] Thomas Reina Anion gap [Moles/Vol] 10.2 mmol/L Normal [facility] Comment on above: Performed By: #### L IPA #### [facility] [address] [address] [address] Thomas Reina AST [Catalytic activity/Vol] 21 U/L Normal 17-59 [facility] Comment on above: Performed By: #### L IPA #### [facility] [address] [address] [address] Thomas Reina Bilirubin [Mass/Vol] 1.8 mg/dL Critically high 0.2-1.3 [facility] Comment on above: Performed By: #### L IPA #### [facility] [address] [address] [address] Thomas Reina Calcium [Mass/Vol] 8.7 mg/dL Normal 8.4-10.2 [facility] Comment on above: Performed By: #### L IPA #### [facility] [address] [address] [address] Thomas Reina Chloride [Moles/Vol] 91 mmol/L Critically low 98-107 [facility] Comment on above: Performed By: #### L IPA #### [facility] [address] [address] [address] Thomas Reina CO2 [Moles/Vol] 27.3 mmol/L Normal 22.0-30.0 [facility] Comment on above: Performed By: #### L IPA #### [facility] [address] [address] [address] Thomas Reina Creatinine [Mass/Vol] 0.78 mg/dL Normal 0.66-1.25 [facility] Comment on above: Performed By: #### L IPA #### [facility] [address] [address] [address] Thomas Reina EGFR-AF CYMRAES >60 Normal >=60 [facility] Comment on above: Performed By: #### L IPA #### [facility] [address] [address] [address] Thomas Reina EGFR-NON AF CYMRAES >60 Normal >=60 [facility] Comment on above: Performed By: #### L IPA #### [facility] [address] [address] [address] Thomas Reina Globulin (S) [Mass/Vol] 5.6 g/dL Normal [facility] Comment on above: Performed By: #### L IPA #### [facility] [address] [address] [address] Thomas Reina Glucose [Mass/Vol] 140 mg/dL Critically high 74-106 [facility] Comment on above: Performed By: #### L IPA #### [facility] [address] [address] [address] Thomas Reina Potassium [Moles/Vol] 3.5 mmol/L Normal 3.4-5.0 [facility] Comment on above: Performed By: #### L IPA #### [facility] [address] [place] [address] Dr. Thomas Reina Protein [Mass/Vol] 7.5 g/dL Normal 6.1-8.2 [facility] Comment on above: Performed By: #### L IPA #### [facility] [address] [place] [address] Dr. Thomas Reina Sodium [Moles/Vol] 125 mmol/L Critically low 137-145 [facility] Comment on above: Performed By: #### L IPA #### [facility] [address] [address] [address] Thomas Reina Urea nitrogen [Mass/Vol] 5.0 mg/dL Critically low 9.0-20.0 [facility] Comment on above: Performed By: #### L IPA #### [facility] [address] [place] [address] Dr. Thomas Reina Urea nitrogen/Creatinine [Mass ratio] 6.4 mg/mg Normal [facility] Comment on above: Performed By: #### L IPA #### [facility] [address] [place] [address] Dr. Thomas Reina XR CHEST 1 Von 09-05-2021 SARS-CoV-2 (COVID-19) RNA LEONARD+probe Ql (Unsp spec) EXAM: XR CHEST 1 V HISTORY: Acute shortness of breath, pneumonia, cough. Positive Covid 3 weeks ago. COMPARISON: CTA chest 08/22/2021. TECHNIQUE: AP chest x-ray. FINDINGS: Cardiac size is unchanged. Trachea is midline. No mediastinal widening. There is dense consolidation in the right mid to lower lung, which appear greater. Left lung appears clear. No pneumothorax is identified. IMPRESSION: Progressive consolidation in the right mid to lower lung compatible with pneumonia. Underlying effusion is not excluded. Electronically authenticated by: DAMASO KRAMER Date: 2021-09-05 21:18 Normal [facility] AMMONIAon 08-23-2021 Ammonia (P) [Moles/Vol] 15 umol/L Normal 08-26 [facility] Comment on above: Performed By: #### L IPA #### [facility] [address] [place] [address] Dr. Thomas Reina BILIRUBIN CONJUGATED (DIRECT )on 08-23-2021 BILI, CONJUGATED 1.0 mg/dL Critically high 0.0-0.3 [facility] Comment on above: Result Comment: Test Repeated. Critical Value Verified Performed By: #### L ACT #### [facility] [address] [place] [address] Dr. Thomas Reina CBC W MANUAL DIFFon 08-23-20 21 ATYPICAL LYMPH # Normal [facility] Comment on above: Performed By: #### L ACT #### [facility] [address] [place] [address] Dr. Thomas Reina ATYPICAL LYMPH % Normal [facility] Comment on above: Performed By: #### L ACT #### [facility] [address] [place] [address] Dr. Thomas Reina BAND # 0.0 103/ul Normal 0.0-0.3 [facility] Comment on above: Performed By: #### L ACT #### [facility] [address] [place] [address] Dr. Thomas Reina BAND % 0 % Normal 0-5 [facility] Comment on above: Performed By: #### L ACT #### [facility] [address] [address] [address] Thomas Reina BASOM # 0.00 103/ul Normal 0.00-0.10 [facility] Comment on above: Performed By: #### L ACT #### [facility] [address] [address] [address] Thomas Reina BASOM % 0.0 % Critically low 0.2-2.0 [facility] Comment on above: Performed By: #### L ACT #### [facility] [address] [address] [address] Thomas Reina BLAST # Normal [facility] Comment on above: Performed By: #### L ACT #### [facility] [address] [address] [address] Thomas Reina BLAST % Normal [facility] Comment on above: Performed By: #### L ACT #### [facility] [address] [place] [address] Dr. Thomas Reina CORRECTED WBC Normal 4.0-11.0 [facility] Comment on above: Performed By: #### L ACT #### [facility] [address] [place] [address] Dr. Thomas Reina EOS # 0.00 103/ul Normal 0.00-0.70 [facility] Comment on above: Performed By: #### L ACT #### [facility] [address] [place] [address] Dr. Thomas Reina EOS% 0.0 % Critically low 0.9-7.0 [facility] Comment on above: Performed By: #### L ACT #### [facility] [address] [place] [address] Dr. Thomas Reina HCT 39.3 % Critically low 42.0-54.0 [facility] Comment on above: Performed By: #### L ACT #### [facility] [address] [place] [address] Dr. Thomas Reina HGB 12.8 g/dl Critically low 14.0-18.0 [facility] Comment on above: Performed By: #### L ACT #### [facility] [address] [place] [address] Dr. Thomas Reina LYMPHM # 0.20 103/ul Critically low 1.20-3.80 [facility] Comment on above: Performed By: #### L ACT #### [facility] [address] [place] [address] Dr. Thomas Reina LYMPHM% 2.0 % Critically low 20.5-60.0 [facility] Comment on above: Performed By: #### L ACT #### [facility] [address] [place] [address] Dr. Thomas Reina MCH 28.2 pg Normal 25.9-34.0 [facility] Comment on above: Performed By: #### L ACT #### [facility] [address] [place] [address] Dr. Thomas Reina MCHC 32.6 g/dl Normal 29.9-35.2 [facility] Comment on above: Performed By: #### L ACT #### [facility] [address] [place] [address] Dr. Thomas Reina MCV 86.6 fL Normal 80.0-94.0 [facility] Comment on above: Performed By: #### L ACT #### [facility] [address] [place] [address] Dr. Thomas Reina METAMYELOCYTE # Normal [facility] Comment on above: Performed By: #### L ACT #### [facility] [address] [place] [address] Dr. Thomas Reina METAMYELOCYTE % Normal [facility] Comment on above: Performed By: #### L ACT #### [facility] [address] [place] [address] Dr. Thomas Reina MONOM# 0.30 103/ul Normal 0.30-0.80 [facility] Comment on above: Performed By: #### L ACT #### [facility] [address] [place] [address] Dr. Thomas Reina MONOM% 3.0 % Normal 1.7-12.0 [facility] Comment on above: Performed By: #### L ACT #### [facility] [address] [address] [address] Thomas Reina MPV 11.1 fL Normal 9.5-13.5 [facility] Comment on above: Performed By: #### L ACT #### [facility] [address] [address] [address] Thomas Reina MYELOCYTE # Normal [facility] Comment on above: Performed By: #### L ACT #### [facility] [address] [address] [address] Thomas Reina MYELOCYTE % Normal [facility] Comment on above: Performed By: #### L ACT #### [facility] [address] [address] [address] Thomas Reina NRBC Normal [facility] Comment on above: Performed By: #### L ACT #### [facility] [address] [address] [address] Thomas Reina PLT 322 103/ul Normal 150-450 [facility] Comment on above: Performed By: #### L ACT #### [facility] [address] [address] [address] Thomas Reina RBC 4.54 106/ul Critically low 4.70-6.10 [facility] Comment on above: Performed By: #### L ACT #### [facility] [address] [address] [address] Thomas Reina RDW 13.8 % Normal 11.0-15.0 [facility] Comment on above: Performed By: #### L ACT #### [facility] [address] [address] [address] Thomas Reina SEG # 9.60 103/ul Critically high 1.40-6.50 [facility] Comment on above: Performed By: #### L ACT #### [facility] [address] [address] [address] Thomas Reina SEG % 95.0 % Critically high 43.0-75.0 [facility] Comment on above: Performed By: #### L ACT #### [facility] [address] [place] [address] Dr. Thomas Reina WBC 10.1 103/ul Normal 4.0-11.0 [facility] Comment on above: Performed By: #### L ACT #### [facility] [address] [place] [address] Dr. Thomas Reina LIPASEon 08-23-2021 Lipase [Catalytic activity/Vol] 157.0 U/L Normal 23.0-300.0 [facility] Comment on above: Performed By: #### L ACT #### [facility] [address] [place] [address] Dr. Thomas Reina PROF 14(COMP METB)on 021 Albumin [Mass/Vol] 2.3 g/dL Critically low 3.5-5.0 [facility] Comment on above: Performed By: #### L ACT #### [facility] [address] [place] [address] Dr. Thomas Reina Albumin/Globulin [Mass ratio] 0.4 {ratio} Normal [facility] Comment on above: Performed By: #### L ACT #### [facility] [address] [place] [address] Dr. Thomas Reina ALP [Catalytic activity/Vol] 133 U/L Critically high 38-126 [facility] Comment on above: Performed By: #### L ACT #### [facility] [address] [place] [address] Dr. Thomas Reina ALT [Catalytic activity/Vol] 57 U/L Normal 21-72 [facility] Comment on above: Performed By: #### L ACT #### [facility] [address] [place] [address] Dr. Thomas Reina Anion gap [Moles/Vol] 14.0 mmol/L Normal [facility] Comment on above: Performed By: #### L ACT #### [facility] [address] [place] [address] Dr. Thomas Reina AST [Catalytic activity/Vol] 35 U/L Normal 17-59 [facility] Comment on above: Performed By: #### L ACT #### [facility] [address] [address] [address] Thomas Reina Bilirubin [Mass/Vol] 1.6 mg/dL Critically high 0.2-1.3 [facility] Comment on above: Performed By: #### L ACT #### [facility] [address] [address] [address] Thomas Reina Calcium [Mass/Vol] 8.9 mg/dL Normal 8.4-10.2 [facility] Comment on above: Performed By: #### L ACT #### [facility] [address] [address] [address] Thomas Reina Chloride [Moles/Vol] 99 mmol/L Normal 98-107 [facility] Comment on above: Performed By: #### L ACT #### [facility] [address] [place] [address] Dr. Thomas Reina CO2 [Moles/Vol] 27.1 mmol/L Normal 22.0-30.0 [facility] Comment on above: Performed By: #### L ACT #### [facility] [address] [address] [address] Thomas Reina Creatinine [Mass/Vol] 0.86 mg/dL Normal 0.66-1.25 [facility] Comment on above: Performed By: #### L ACT #### [facility] [address] [address] [address] Thomas Reina EGFR-AF CYMRAES >60 Normal >=60 [facility] Comment on above: Performed By: #### L ACT #### [facility] [address] [address] [address] Thomas Reina EGFR-NON AF CYMRAES >60 Normal >=60 [facility] Comment on above: Performed By: #### L ACT #### [facility] [address] [address] [address] Thomas Reina Globulin (S) [Mass/Vol] 5.3 g/dL Normal [facility] Comment on above: Performed By: #### L ACT #### [facility] [address] [address] [address] Thomas Reina Glucose [Mass/Vol] 190 mg/dL Critically high 74-106 [facility] Comment on above: Performed By: #### L ACT #### [facility] [address] [address] [address] Thomas Reina Potassium [Moles/Vol] 4.1 mmol/L Normal 3.4-5.0 [facility] Comment on above: Performed By: #### L ACT #### [facility] [address] [address] [address] Thomas Reina Protein [Mass/Vol] 7.6 g/dL Normal 6.1-8.2 [facility] Comment on above: Performed By: #### L ACT #### [facility] [address] [address] [address] Thomas Reina Sodium [Moles/Vol] 136 mmol/L Critically low 137-145 [facility] Comment on above: Performed By: #### L ACT #### [facility] [address] [address] [address] Thomas Reina Urea nitrogen [Mass/Vol] 15.0 mg/dL Normal 9.0-20.0 [facility] Comment on above: Performed By: #### L ACT #### [facility] [address] [place] [address] Dr. Thomas Reina Urea nitrogen/Creatinine [Mass ratio] 17.4 mg/mg Normal [facility] Comment on above: Performed By: #### L ACT #### [facility] [address] [address] [address] Thomas Reina TSHon 08-23-2021 TSH 0.300 uIU/mL Critically low 0.470-4.680 [facility] Comment on above: Performed By: #### L ACT #### [facility] [id number] Thomas Reina TSH RANGE SEE BELOW Normal [facility] Comment on above: Result Comment: <0.3 4 UIU/ml HYPERTHYROID 0.34-5.60 UIU/ml EUTHYROID >5.60 UIU/ml HYPOTHYROID Performed By: #### L ACT #### [facility] [address] [place] [address] Dr. Thomas Reina ACETAMINOPHENon 08-22-2021 Acetaminophen [Mass/Vol] ug/mL Critically low 10.1-30.0 [facility] Comment on above: Performed By: #### S ALYC, ACET, ETH #### [facility] [address] [place] [address] Dr. Thomas Reina BNPon 08-22-2021 Natriuretic peptide B (Bld) [Mass/Vol] 484.0 pg/mL Normal <=900.0 [facility] Comment on above: Performed By: #### C BC #### [facility] [address] [place] [address] Dr. Thomas Reina CBC W MANUAL DIFFon 08-22-20 ANISOCYTOSIS SLIGHT Normal [facility] Comment on above: Performed By: #### C NEW #### [facility] [address] [place] [address] Dr. Thomas Reina ATYPICAL LYMPH # Normal [facility] Comment on above: Performed By: #### C NEW #### [facility] [address] [place] [address] Dr. Thomas Reina ATYPICAL LYMPH % Normal [facility] Comment on above: Performed By: #### C BCMAN #### [facility] [address] [place] [address] Dr. Thomas Reina BAND # Normal 0.0-0.3 [facility] Comment on above: Performed By: #### C BCMAN #### [facility] [address] [place] [address] Dr. Thomas Reina BAND % Normal 0-5 [facility] Comment on above: Performed By: #### C BCMAN #### [facility] [address] [place] [address] Dr. Thomas Reina BASOM # 0.00 103/ul Normal 0.00-0.10 [facility] Comment on above: Performed By: #### C RAMIROMAN #### [facility] [address] [place] [address] Dr. Thomas Reina BASOM % 0.0 % Critically low 0.2-2.0 [facility] Comment on above: Performed By: #### C NEW #### [facility] [address] [place] [address] Dr. Thomas Reina BLAST # Normal [facility] Comment on above: Performed By: #### C NEW #### [facility] [address] [place] [address] Dr. Thomas Reina BLAST % Normal [facility] Comment on above: Performed By: #### C NEW #### [facility] [address] [place] [address] Dr. Thomas Reina CORRECTED WBC Normal 4.0-11.0 [facility] Comment on above: Performed By: #### C NEW #### [facility] [address] [place] [address] Dr. Thomas Reina EOS # 0.00 103/ul Normal 0.00-0.70 [facility] Comment on above: Performed By: #### C NEW #### [facility] [address] [place] [address] Dr. Thomas Reina EOS% 0.0 % Critically low 0.9-7.0 [facility] Comment on above: Performed By: #### C NEW #### [facility] [address] [place] [address] Dr. Thomas Reina HCT 42.0 % Normal 42.0-54.0 [facility] Comment on above: Performed By: #### C NEW #### [facility] [address] [place] [address] Dr. Thomas Reina HGB 14.1 g/dl Normal 14.0-18.0 [facility] Comment on above: Performed By: #### C NEW #### [facility] [address] [place] [address] Dr. Thomas Reina LYMPHM # 1.09 103/ul Critically low 1.20-3.80 [facility] Comment on above: Performed By: #### C NEW #### [facility] [address] [place] [address] Dr. Thomas Reina LYMPHM% 6.0 % Critically low 20.5-60.0 [facility] Comment on above: Performed By: #### C NEW #### [facility] [address] [place] [address] Dr. Thomas Reina MCH 28.9 pg Normal 25.9-34.0 [facility] Comment on above: Performed By: #### C NEW #### [facility] [address] [place] [address] Dr. Thomas Reina MCHC 33.6 g/dl Normal 29.9-35.2 [facility] Comment on above: Performed By: #### C NEW #### [facility] [address] [place] [address] Dr. Thomas Reina MCV 86.1 fL Normal 80.0-94.0 [facility] Comment on above: Performed By: #### C NEW #### [facility] [address] [place] [address] Dr. Thomas Reina METAMYELOCYTE # Normal [facility] Comment on above: Performed By: #### C NEW #### [facility] [address] [place] [address] Dr. Thomas Reina METAMYELOCYTE % Normal [facility] Comment on above: Performed By: #### C NEW #### [facility] [address] [place] [address] Dr. Thomas Reina MICROCYTOSIS 1+ Normal [facility] Comment on above: Performed By: #### C NEW #### [facility] [address] [place] [address] Dr. Thomas Reina MONOM# 1.63 103/ul Critically high 0.30-0.80 [facility] Comment on above: Performed By: #### C NEW #### [facility] [address] [place] [address] Dr. Thomas Reina MONOM% 9.0 % Normal 1.7-12.0 [facility] Comment on above: Performed By: #### C NEW #### [facility] [address] [place] [address] Dr. Thomas Reina MPV 11.1 fL Normal 9.5-13.5 [facility] Comment on above: Performed By: #### C NEW #### [facility] [address] [address] [address] Thomas Reina MYELOCYTE # Normal [facility] Comment on above: Performed By: #### C NEW #### [facility] [address] [address] [address] Thomas Reina MYELOCYTE % Normal [facility] Comment on above: Performed By: #### C NEW #### [facility] [address] [address] [address] Thomas Reina NRBC Normal [facility] Comment on above: Performed By: #### C NEW #### [facility] [address] [address] [address] Thomas Reina PLT 341 103/ul Normal 150-450 [facility] Comment on above: Performed By: #### C NEW #### [facility] [address] [address] [address] Thomas Reina RBC 4.88 106/ul Normal 4.70-6.10 [facility] Comment on above: Performed By: #### C NEW #### [facility] [address] [place] [address] Dr. Thomas Reina RDW 13.7 % Normal 11.0-15.0 [facility] Comment on above: Performed By: #### C NEW #### [facility] [address] [address] [address] Thomas Reina SEG # 15.39 103/ul Critically high 1.40-6.50 [facility] Comment on above: Performed By: #### C NEW #### [facility] [address] [address] [address] Thomas Reina SEG % 85.0 % Critically high 43.0-75.0 [facility] Comment on above: Performed By: #### C NEW #### [facility] [address] [place] [address] Dr. Thomas Reina WBC 18.1 103/ul Critically high 4.0-11.0 [facility] Comment on above: Performed By: #### C [facility] #### [facility] [address] [place] [id number] ABD/PELVIS WO CONon 08-22 CT ABD/PELVIS WO CON EXAMINATION: CT ABD/PELVIS WO CON, 08/22/2021 3:31 PM EDT HISTORY: Pain COMPARISON: None. TECHNIQUE: CT scan of the abdomen and pelvis was performed without IV contrast. CT dose reduction technique was used, including Automated Exposure Control. FINDINGS: LUNG BASES: Moderate infiltrate in the right lower lobe with consolidation. Minimal opacity in the left lower lobe LIVER: No enlargement, atrophy, abnormal density, or significant focal lesion. BILIARY: No dilatation or calcification. PANCREAS: No lesion, fluid collection, ductal dilatation, or atrophy. SPLEEN: No enlargement or focal lesion. ADRENALS: No mass or enlargement. KIDNEYS: No focal mass or hydronephrosis. Contrast filling of the collecting system related to prior CT exam BOWEL/MESENTERY: Nonobstructive bowel gas pattern. AORTA/VASCULAR: No aortic aneurysm. Atherosclerosis. RETROPERITONEUM: No mass or adenopathy. LYMPH NODES: No adenopathy. URINARY BLADDER: Contrast filling of the urinary bladder PELVIC ORGANS: No visible mass. Pelvic organs appropriate for patient age. ABDOMINAL WALL: No mass or hernia. BONES: Right hip total arthroplasty OTHER: Negative. IMPRESSION: Right lower lobe pneumonia. Follow-up recommended to document resolution No acute intraperitoneal abnormality Electronically authenticated by: BRITTANY PANDEY Date: 2021-08-22 16:20 Normal [facility] CTA CHEST WO W CONon 021 CTA CHEST WO W CON EXAMINATION: CTA SHAILA ST WO W CON HISTORY: SHORTNESS OF BREATH COMPARISON: No relevant comparison available. TECHNIQUE: Multi-planar CT images were created with IV contrast. Axial, Coronal, and Sagittal images. Dose reduction techniques were achieved by using automated exposure control and/or adjustment of mA and/or kV according to patient size and/or use of iterative reconstruction technique. 3-D reconstruction was performed on a separate workstation. FINDINGS: VASCULATURE: No pulmonary embolism or abnormal opacity. LUNGS: Large area of consolidation within the posterior medial right lung base involving the basilar segments, approximately 10 x 9 x 7 cm. Trace amount of infiltrate versus atelectasis within posterior left lung. PLEURA: No mass, effusion, or pneumothorax. MARILU: A few slightly prominent right hilar lymph nodes. MEDIASTINUM: No mass or adenopathy. CARDIAC: No enlargement, pericardial effusion, or pericardial thickening. AORTA: No aneurysm or dissection. CHEST WALL: No mass or axillary adenopathy. BONES: No bone lesion or fracture. LIMITED ABDOMEN: No suspicious findings. Limited images of the upper abdomen. OTHER: Negative. IMPRESSION: 1. Large area of consolidation involving the basilar segments of the right lower lobe favoring pneumonia. 2. No pulmonary embolism. 3. Mild lymphadenopathy. Electronically authenticated by: DEANDRA RAVI Date: 2021-08-22 13:32 Normal [facility] Covid-19 PCR (CVDTB)on 07-29 SARS-CoV-2 (COVID-19) RNA LEONARD+probe Ql (Unsp spec) Not detected Normal NOT DETECTED [facility] Comment on above: Result Comment: When diagnostic testing is negative, the possibility of a false negative should be considered in the context of a patient's recent exposures and the presence of clinical signs and symptoms consistent with SARS-CoV-2. This test is not yet approved or cleared by the [place] Food and Drug Administration (FDA). This test was developed by [employer] [place], [place]. The performance characteristics of this test were validated by [facility]. The results are not intended to be used as the sole means for clinical diagnosis or patient management decisions. [facility] is authorized under Clinical Laboratory Improvement Amendments (CLIA) to perform high- complexity testing. Performed By: #### C VDTBH #### [facility] [address] [place] [address] Dr. Thomas Reina ER URINE PROFILEon Bilirubin Ql (U) MODERATE Abnormal NEGATIVE [facility] Comment on above: Performed By: #### C BC #### [facility] [address] [place] [address] Dr. Thomas Reina Clarity (U) CLEAR Normal CLEAR [facility] Comment on above: Performed By: #### C BC #### [facility] [address] [place] [address] Dr. Thomas Reina Color (U) DK. YELLOW Normal YELLOW [facility] Comment on above: Performed By: #### C BC #### [facility] [address] [place] [address] Dr. Thomas CORTÉS A micrscopic examination will be performed if indicated. Normal [facility] Comment on above: Performed By: #### C BC #### [facility] [address] [place] [address] Dr. Thomas Reina Glucose Ql (U) Negative Normal NEGATIVE [facility] Comment on above: Performed By: #### C BC #### [facility] [address] [place] [address] Dr. Thomas Reina Hemoglobin Ql (U) Negative Normal NEGATIVE [facility] Comment on above: Performed By: #### C BC #### [facility] [address] [place] [address] Dr. Thomas Reina Ketones Ql (U) Negative Normal NEGATIVE [facility] Comment on above: Performed By: #### C BC #### [facility] [address] [place] [address] Dr. Thomas Reina LEUKOCYTES Negative Normal NEGATIVE [facility] Comment on above: Performed By: #### C BC #### [facility] [address] [place] [address] Dr. Thomas Reina Nitrite Ql (U) Negative Normal NEGATIVE [facility] Comment on above: Performed By: #### C BC #### [facility] [address] [place] [address] Dr. Thomas Reina pH (U) 6.5 [pH] Normal 5-9 [facility] Comment on above: Performed By: #### C BC #### [facility] [address] [place] [address] Dr. Thomas Reina Protein (U) [Mass/Vol] 30 mg/dL Abnormal NEGATIVE/ TRACE [facility] Comment on above: Performed By: #### C BC #### [facility] [address] [place] [address] Dr. Thomas Reina SPEC GRAVITY <=1.005 Abnormal 1.005-<=1.025 [facility] Comment on above: Performed By: #### C BC #### [facility] [address] [place] [address] Dr. Thomas Reina UR MICRO IND INDICATED Normal [facility] Comment on above: Performed By: #### C BC #### [facility] [address] [place] [address] Dr. Thomas Reina Urobilinogen Qn (U) 8 {Reese'U}/dL Abnormal 0.2 - 1.0 [facility] Comment on above: Performed By: #### C BC #### [facility] [address] [place] [address] Dr. Thomas Reina ETHANOL (BLD ALC)on 08-22-20 21 ALC NOTE NOTE: 80 mg/dl is e legal limit for a blood alcohol level Normal [facility] Comment on above: Performed By: #### S ALYC, ACET, ETH #### [facility] [address] [place] [address] Dr. Thomas Reina Ethanol [Mass/Vol] mg/dL Normal [facility] Comment on above: Performed By: #### S ALYC, ACET, ETH #### [facility] [address] [place] [address] Dr. Thomas Reina LIPASEon 08-22-2021 Lipase [Catalytic activity/Vol] 34.0 U/L Normal 23.0-300.0 [facility] Comment on above: Performed By: #### L IPA #### [facility] [address] [place] [address] Dr. Thomas Reina PROF 14(COMP METB)on 021 Albumin [Mass/Vol] 2.8 g/dL Critically low 3.5-5.0 e [facility] Comment on above: Performed By: #### B MERCHANDISE PLANNER, HSTROPN, CMP #### [facility] [address] [place] [address] Dr. Thomas Reina Albumin/Globulin [Mass ratio] 0.5 {ratio} Normal [facility] Comment on above: Performed By: #### B MERCHANDISE PLANNER, HSTROPN, CMP #### [facility] [address] [address] [address] Thomas Reina ALP [Catalytic activity/Vol] 172 U/L Critically high 38-126 [facility] Comment on above: Performed By: #### B MERCHANDISE PLANNER, HSTROPN, CMP #### [facility] [address] [address] [address] Thomas Reina ALT [Catalytic activity/Vol] 84 U/L Critically high 21-72 [facility] Comment on above: Performed By: #### B MERCHANDISE PLANNER, HSTROPN, CMP #### [facility] [address] [address] [address] Thomas Reina Anion gap [Moles/Vol] 13.7 mmol/L Normal [facility] Comment on above: Performed By: #### B MERCHANDISE PLANNER, HSTROPN, CMP #### [facility] [address] [place] [address] Dr. Thomas Reina AST [Catalytic activity/Vol] 67 U/L Critically high 17-59 [facility] Comment on above: Performed By: #### B MERCHANDISE PLANNER, HSTROPN, CMP #### [facility] [address] [address] [address] Thomas Reina Bilirubin [Mass/Vol] 4.6 mg/dL Critically high 0.2-1.3 [facility] Comment on above: Performed By: #### B MERCHANDISE PLANNER, HSTROPN, CMP #### [facility] [address] [address] [address] Thomas Reina Calcium [Mass/Vol] 9.1 mg/dL Normal 8.4-10.2 [facility] Comment on above: Performed By: #### B MERCHANDISE PLANNER, HSTROPN, CMP #### [facility] [address] [address] [address] Thomas Reina Chloride [Moles/Vol] 95 mmol/L Critically low 98-107 [facility] Comment on above: Performed By: #### B MERCHANDISE PLANNER, HSTROPN, CMP #### [facility] [address] [address] [address] Thomas Reina CO2 [Moles/Vol] 25.9 mmol/L Normal 22.0-30.0 [facility] Comment on above: Performed By: #### B MERCHANDISE PLANNER, HSTROPN, CMP #### [facility] [address] [place] [address] Dr. Thomas Reina Creatinine [Mass/Vol] 0.97 mg/dL Normal 0.66-1.25 [facility] Comment on above: Performed By: #### B MERCHANDISE PLANNER, HSTROPN, CMP #### [facility] [address] [place] [address] Dr. Thomas Reina EGFR-AF CYMRAES >60 Normal >=60 [facility] Comment on above: Performed By: #### B MERCHANDISE PLANNER, HSTROPN, CMP #### [facility] [address] [place] [address] Dr. Thomas Reina EGFR-NON AF CYMRAES >60 Normal >=60 [facility] Comment on above: Performed By: #### B MERCHANDISE PLANNER, HSTROPN, CMP #### [facility] [address] [place] [address] Dr. Thomas Reina Globulin (S) [Mass/Vol] 5.6 g/dL Normal [facility] Comment on above: Performed By: #### B MERCHANDISE PLANNER, HSTROPN, CMP #### [facility] [address] [place] [address] Dr. Thomas Reina Glucose [Mass/Vol] 182 mg/dL Critically high 74-106 [facility] Comment on above: Performed By: #### B MERCHANDISE PLANNER, HSTROPN, CMP #### [facility] [address] [place] [address] Dr. Thomas Reina Potassium [Moles/Vol] 3.6 mmol/L Normal 3.4-5.0 [facility] Comment on above: Performed By: #### B MERCHANDISE PLANNER, HSTROPN, CMP #### [facility] [address] [place] [address] Dr. Thomas Reina Protein [Mass/Vol] 8.4 g/dL Critically high 6.1-8.2 [facility] Comment on above: Performed By: #### B MERCHANDISE PLANNER, HSTROPN, CMP #### [facility] [address] [place] [address] Dr. Thomas Reina Sodium [Moles/Vol] 131 mmol/L Critically low 137-145 Th e [facility] Comment on above: Performed By: #### B MERCHANDISE PLANNER, HSTROPN, CMP #### [facility] [address] [place] [address] Dr. Thomas Reina Urea nitrogen [Mass/Vol] 12.0 mg/dL Normal 9.0-20.0 [facility] Comment on above: Performed By: #### B MERCHANDISE PLANNER, HSTROPN, CMP #### [facility] [address] [place] [address] Dr. Thomas Reina Urea nitrogen/Creatinine [Mass ratio] 12.4 mg/mg Normal [facility] Comment on above: Performed By: #### B MERCHANDISE PLANNER, HSTROPN, CMP #### [facility] [address] [place] [address] Dr. Thomas Reina PROTIMEon 08-22-2021 INR Coag (PPP) [Relative time] 1.11 {INR} Normal [facility] Comment on above: Performed By: #### L IPA #### [facility] [address] [place] [address] Dr. Thomas Reina INR GUIDELINES SEE BELOW Normal [facility] Comment on above: Result Comment: ALBIN RED INR: 2.0 - 3.0 CONDITIONS NOT LISTED BELOW 2.5 - 3.5 FOR PROSTHETIC HEART VALVE REPLACEMENT 2.5 - 3.5 RECURRENT THROMBOSIS Performed By: #### L IPA #### [facility] [address] [place] [address] Dr. Thomas Reina PT Coag (PPP) [Time] 11.9 s Critically high 9.0-11.6 [facility] Comment on above: Performed By: #### L IPA #### [facility] [address] [place] [address] Dr. Thomas Riena PTTon 08-22-2021 aPTT Coag (Bld) [Time] 28.8 s Normal 22.3-36.2 [facility] Comment on above: Performed By: #### L ACT #### [facility] [address] [place] [address] Dr. Thomas Reina SALICYLATEon 08-22-2021 SALICYLATE <1.0 Normal <=20.0 [facility] Comment on above: Performed By: #### S ALYC, ACET, ETH #### [facility] [address] [place] [address] Dr. Thomas Reina TROPONIN, HIGH SENSITIVITYon 08-22-2021 HSTROP 7.1 pg/mL Normal 4.0-42.2 [facility] Comment on above: Result Comment: CUT- OFF POINTS HAVE BEEN ESTABLISHED BASED ON THE FOURTH UNIVERSAL DEFINITIONS OF MYOCARDIAL INFARCTION. THE UPPER REFERENCE LIMIT (URL) OF TROPONIN, DEFINED THE 99TH PERCENTILE OF cTnI DISTRIBUTION IN A REFERENCE POPULATION, HAS BEEN CONFIRMED THE DECISION THRESHOLD FOR [place] DIAGNOSIS. Performed By: #### B MERCHANDISE PLANNER, HSTROPN, CMP #### [facility] [address] [place] [address] Dr. Thomas Reina URINE MICROSCOPIC ONLYon BACTERIA TRACE Abnormal NONE SEEN [facility] Comment on above: Performed By: #### C BC #### [facility] [address] [place] [address] Dr. Thomas Reina Bacteria identified Cx Nom (U) NOT INDICATED Normal [facility] Comment on above: Performed By: #### C BC #### [facility] [address] [place] [address] Dr. Thomas Reina CAST NONE SEEN Normal NONE SEEN [facility] Comment on above: Performed By: #### C BC #### [facility] [address] [place] [address] Dr. Thomas Reina Crystals LM Nom (Urine sed) NONE SEEN Normal NONE SEEN [facility] Comment on above: Performed By: #### C BC #### [facility] [address] [place] [address] Dr. Thomas Reina Epithelial cells LM Ql (Urine sed) RARE Normal NONE SEEN /RARE [facility] Comment on above: Performed By: #### C BC #### [facility] [address] [place] [address] Dr. Thomas Reina MUCOUS TRACE Abnormal NONE SEEN [facility] Comment on above: Performed By: #### C BC #### [facility] [address] [address] [address] Thomas Reina RBC 0-2 Normal 0-2 [facility] Comment on above: Performed By: #### C BC #### [facility] [address] [id number] [address] Thomas Reina WBC 0-2 Abnormal NONE SEEN [facility] Comment on above: Performed By: #### C BC #### [facility] [address] [address] [address] Thomas Reina US SINGLE QUAD RT UPPERon US SINGLE QUAD RT UPPER EXAMINATION: US SINGLE QUAD RT UPPER HISTORY: Pain ; abnormal lab values COMPARISON: No relevant comparison available. TECHNIQUE: Transabdominal evaluation of the right upper quadrant. FINDINGS: LIVER: Normal size and echotexture. Color Doppler demonstrates patent hepatic veins. PORTAL VEIN: Duplex Doppler demonstrates normal hepatopetal flow pattern with flow velocity averaging 29 cm/s. GALLBLADDER: Mild wall thickening, 4 mm. No appreciable stones or free fluid. No tenderness while imaging over the gallbladder. BILIARY: No abnormal dilation or stones. Common bile duct diameter is within normal limits. PANCREASE: No visible mass, abnormal atrophy, or duct dilation. KIDNEY: No hydronephrosis. No visible mass or stones. Size: 10.8 x 6.2 x 5.9 cm IMPRESSION: 1. Mild wall thickening of the gallbladder without stones or Mueller's sign; nonspecific. Possibly chronic cholecystitis. 2. Unremarkable liver. Electronically authenticated by: DEANDRA RAVI Date: 2021-08-22 14:38 Normal [facility] Vital Signs Date Time Vital Sign Value Performing Clinician Facility 07-27-2024 09:03-0400 Blood Pressure Location JANIA STEWART [facility] 07-27-2024 09:03-0400 Diastolic blood pressure 82 mm[Hg] JANIA STEWART [facility] 07-27-2024 09:03-0400 Systolic blood pressure 130 mm[Hg] JANIA WILLIAM [facility] 06-01-2024 09:59-0400 Body height 167.64 cm MD Pat aVnce Work Phone: [facility] 06-01-2024 09:59-0400 Body mass index (BMI) [Ratio] 32.8 kg/m2 MD Pat Vance Work Phone: [facility] 06-01-2024 09:59-0400 Body weight 92.07 kg MD Pat Vance Work Phone: [facility] 06-01-2024 09:59-0400 Diastolic blood pressure 86 mm[Hg] MD Pat Vance Work Phone: [facility] 06-01-2024 09:59-0400 Heart rate 66 /min MD Pat Vance Work Phone: [facility] 06-01-2024 09:59-0400 Systolic blood pressure 145 mm[Hg] MD Pat Vance Work Phone: [facility] 08-05-2022 14:20-0400 Body height 170.18 cm Edel Franklin Other [employer] [facility] [employer] Other 08-05-2022 14:20-0400 Body mass index (BMI) [Ratio] 29.25 kg/m2 Edel Franklin Other [employer] Other 08-05-2022 14:20-0400 Body temperature 98.3 [degF] Edel Franklin Other [employer] Other 08-05-2022 14:20-0400 Body weight 84.73 kg Edel Franklin Other [employer] Other 08-05-2022 14:20-0400 Diastolic blood pressure 88 mm[Hg] Edel Franklin Other [employer] Other 08-05-2022 14:20-0400 Respiratory rate 18 /min Edel Franklin Other [employer] Other 08-05-2022 14:20-0400 SaO2% (BldA) [Mass fraction] 98 % Edel Franklin Other [employer] Other 08-05-2022 14:20-0400 Systolic blood pressure 152 mm[Hg] Edel Franklin Other [employer] Other 01-30-2022 09:30-0400 Body height 170.18 cm Robert Olexa Other [employer] Other 01-30-2022 09:30-0400 Body mass index (BMI) [Ratio] 29.75 kg/m2 Robert Olexa Other [employer] Other 01-30-2022 09:30-0400 Body weight 86.18 kg Robert Olexa Other [employer] Other 10-18-2021 10:45-0500 Body height 170.18 cm Nithin Bonds Other [employer] Other 10-18-2021 10:45-0500 Body mass index (BMI) [Ratio] 29.91 kg/m2 Nithin Bonds Other [employer] Other 10-18-2021 10:45-0500 Body temperature 97.1 [degF] Nithin Bonds Other [employer] Other 10-18-2021 10:45-0500 Body weight 86.64 kg Nithin Bonds Other [employer] Other 10-18-2021 10:45-0500 Diastolic blood pressure 68 mm[Hg] Nithin Bonds Other [employer] Other 10-18-2021 10:45-0500 Respiratory rate 20 /min Nithin Bonds Other [employer] Other 10-18-2021 10:45-0500 SaO2% (BldA) [Mass fraction] 98 % Nithin Bonds Other [employer] Other 10-18-2021 10:45-0500 Systolic blood pressure 110 mm[Hg] Nithin Bonds Other [employer] Other 10-05-2021 15:15-0500 Body height 170.18 cm John Banda Other [employer] Other 10-05-2021 15:15-0500 Body mass index (BMI) [Ratio] 29.13 kg/m2 John Banda Other [employer] Other 10-05-2021 15:15-0500 Body temperature 98.4 [degF] John Banda Other [employer] Other 10-05-2021 15:15-0500 Body weight 84.37 kg John Banda Other [employer] Other 08-16-2021 17:15-0400 Body height 170.18 cm Marisol Powers Other [employer] Other 08-16-2021 17:15-0400 Body mass index (BMI) [Ratio] 29.75 kg/m2 Marisol Powers Other [employer] Other 08-16-2021 17:15-0400 Body temperature 97.4 [degF] Marisol Powers Other [employer] Other 08-16-2021 17:15-0400 Body weight 86.18 kg Marisol Powers Other [employer] Other 08-16-2021 17:15-0400 Respiratory rate 18 /min Marisol Powers Other [employer] Other 08-16-2021 17:15-0400 SaO2% (BldA) [Mass fraction] 97 % Marisol Powers Other [employer] Other Encounters Encounter Date Encounter Type Care Provider Facility Start: 08-10-2024 End: 08-10-2024 ambulatory MD JANIA WILLIAM Facility:[facility] Start: 08-10-2024 End: 08-10-2024 Patient encounter procedure JANIA WILLIAM [facility] Start: 08-03-2024 End: 08-03-2024 ambulatory MD JANIA WILLIAM Facility:[facility] Start: 08-03-2024 End: 08-03-2024 Patient encounter procedure JANIA WILLIAM [facility] Start: 07-27-2024 End: 07-27-2024 ambulatory MD JANIA WILLIAM Facility:[facility] Start: 07-27-2024 End: 07-27-2024 Patient encounter procedure JANIA WILLIAM [facility] Start: 07-23-2024 End: 07-23-2024 ambulatory LM SANTACRUZ Facility: [facility] Start: 07-23-2024 End: 07-23-2024 Patient encounter procedure LM SANTACRUZ [facility] Start: 06-03-2024 ambulatory MD JANIA WILLIAM Facility:[facility] Start: 06-01-2024 End: 06-01-2024 ambulatory MD Pat Vance Work Phone: [facility] Work Phone: Start: 06-01-2024 End: 06-01-2024 Patient encounter procedure MD Pat Vance Work Phone: [facility] Work Phone: Start: 07-09-2023 End: 07-09-2023 ambulatory Pat Vance Other [employer] Other Start: 07-09-2023 Telephone encounter Pat Vance [facility] Start: 08-05-2022 End: 08-05-2022 ambulatory Edel Franklin Other [employer] Other Start: 08-05-2022 Office outpatient visit 15 minutes Edel Franklin [facility] Start: 01-30-2022 End: 01-30-2022 ambulatory Robert Espinoza Other [employer] Other Start: 01-30-2022 Office outpatient visit 15 minutes Robert Espinoza [facility] Start: 01-16-2022 End: 01-16-2022 ambulatory Robert Olexa Other [employer] Other Start: 01-16-2022 Office outpatient ne w 30 minutes Robert Espinoza [facility] Start: 10-18-2021 End: 10-18-2021 ambulatory Nithin Bonds Other [employer] Other Start: 10-18-2021 Office outpatient visit 25 minutes Nithin Bonds [facility] Start: 10-05-2021 End: 10-05-2021 ambulatory John Banda Other [employer] Other Start: 10-05-2021 Office outpatient visit 25 minutes John Banda [facility] Start: 09-05-2021 End: 09-07-2021 Evaluation and management of inpatient DR NONE LISTED REQUEST Facility: Start: 08-22-2021 End: 08-23-2021 ambulatory [facility] Facility: Start: 08-16-2021 (URG) Urgent Care Visit Marisol Powers [facility] Procedures Date Procedure Procedure Detail Performing Clinician Arthroplasty JANIA CASEY -AMABRAHANRA Insertion of hip prosthesis JANIA NKANSSUZANNA-AMANKRA Procedure on rectum JANIA NKANSAH-AMANKRA Plan of Treatment Date Care Activity Detail Author Start: 06-01-2024 Patient referral [facility] Work Phone: Start: 06-01-2024 EKG 12 channel panel [facility] Patient referral [facility] Work Phone: Immunizations Immunization Date Immunization Notes Care Provider Yasmin flynn 08-06-2020 influenza virus vaccine, unspecified formulation MD Pat Vance Work Phone: [facility] 08-25-2018 tetanus toxoid, redu shane diphtheria toxoid, and acellular pertussis vaccine, adsorbed MD Pat Vance Work Phone: [facility] 08-24-2018 diphtheria, tetanus toxoids and acellular pertussis vaccine, unspecified formulation MD Pat Vance Work Phone: [facility] Payers Date Payer Category Payer Self-pay [id number] 1965 Unknown [id number] 2.16.84 [id number] 1965 Unknown [id number] 2.16.84 [id number] 1965 Unknown [id number] 2.16.8 [id number] 1967 Unknown [id number] 2.16.8 [id number] 1967 Unknown [id number] 2.16.8 [id number] 1967 Unknown [id number] 2.16.8 [id number] 1959 Unknown [id number] Unknown [id number] Social History Date Type Detail Facility Sex Assigned At [facility] Start: 09-12-2021 End: 07-27-2024 Tobacco smoking status NHIS Never smoked tobacco (finding) [facility] Start: 1965 Sex Assigned At Male F [facility] Tobacco smoking status No Smokin g Status Entered [facility] [place] Functional Status Date Assessment Result Facility 07-27-2024 Functional Status N/A [facility] Clinical Notes 08-06-2021 to 07-27-2024 Note Date & Type Note Facility 07-27-2024 Hospital Discharge instructions Follow Up Care 07/27/2024 12:44:27 With:STEWART TAYLOR, JANIA, URL Address: When: Unknown [facility] 07-27-2024 Hospital Discharge instructions Patient Education 07/27/2024 09:20:06 Prostate-Specific Antigen Test Prostate-Specific Antigen Test Why am I having this test? The prostate-specific antigen (PSA) test is a screening test for prostate cancer. It can identify early signs of prostate cancer, which may allow for early detection and more effective treatment. Your health care provider may recommend that you have a PSA test starting at age 50 or that you have one earlier if you are at higher risk for prostate cancer. You may also have a PSA test: To monitor treatment of prostate cancer. To check whether prostate cancer has returned after treatment. What is being tested? This test measures the amount of PSA in your blood. PSA is a protein that is made in the prostate. The prostate naturally produces more PSA as you age, but very high levels may be a sign of a medical condition. What kind of sample is taken? A blood sample is required for this test. It is usually collected by inserting a needle into a blood vessel but can also be collected by sticking a finger with a small needle. Blood for this test should be drawn before having an exam of the prostate that involves digital rectal examination to avoid affecting the results. How do I prepare for this test? Do not ejaculate starting 24 hours before your test, or as long as told by your health care provider, as this can cause an elevation in PSA. Do not undergo any procedures that require manipulation of the prostate, such as biopsy or surgery, for 6 weeks before the test is done as this can cause an elevation in PSA. Tell a health care provider about: Any signs you may have of other conditions that can affect PSA levels, such as: ?An enlarged prostate that is not caused by cancer (benign prostatic hyperplasia, or BPH). This condition is very common in older men. ?A prostate or urinary tract infection. Any allergies you have. All medicines you are taking, including vitamins, herbs, eye drops, creams, and cttx-blp-wlgkfir medicines. This also includes: ?Medicines to assist with hair growth, such as finasteride. ?Any recent exposure to a medicine called diethylstilbestrol (BRIDGETT). ?Medicines such as male hormones (like testosterone) or other medicines that raise testosterone levels. Any bleeding problems you have. Any recent procedures you have had, especially any procedures involving the prostate or rectum. Any medical conditions you have. How are the results reported? Your test results will be reported as a value that indicates how much PSA is in your blood. This will be given as nanograms of PSA per milliliter of blood (ng/mL). Your health care provider will compare your results to normal ranges that were established after testing a large group of people (reference ranges). Reference ranges may vary among labs and hospitals. PSA levels vary from person to person and generally increase with age. Because of this variation, there is no single PSA value that is considered normal for everyone. Instead, PSA reference ranges are used to describe whether your PSA levels are considered low or high (elevated). Common reference ranges are: Low: 0 2.5 ng/mL. Slightly to moderately elevated: 2.6 10.0 ng/mL. Moderately elevated: 10.0 19.9 ng/mL. Significantly elevated: 20 ng/mL or greater. What do the results mean? A test result that is higher than 4 ng/mL may mean that you have prostate cancer. However, a PSA test by itself is not enough to diagnose prostate cancer. High PSA levels may also be caused by the natural aging process, prostate infection (prostatitis), or BPH. PSA screening cannot tell you if your PSA is high due to cancer or a different cause. A prostate biopsy is the only way to diagnose prostate cancer. A risk of having the PSA test is diagnosing and treating prostate cancer that would never have caused any symptoms or problems (overdiagnosis and overtreatment). Talk with your health care provider about what your results mean. In some cases, your health care provider may do more testing to confirm the results. Questions to ask your health care provider Ask your health care provider, or the department that is doing the test: When will my results be ready? How will I get my results? What are my treatment options? What other tests do I need? What are my next steps? Summary The prostate-specific antigen (PSA) test is a screening test for prostate cancer. Your health care provider may recommend that you have a PSA test starting at age 50 or that you have one earlier if you are at higher risk for prostate cancer. A test result that is higher than 4 ng/mL may mean that you have prostate cancer. However, elevated levels can be caused by a number of conditions other than prostate cancer. Talk with your health care provider about what your results mean. This information is not intended to replace advice given to you by your health care provider. Make sure you discuss any questions you have with your health care provider. Document Revised: 02/21/2022 Document Reviewed: 02/21/2022 [email or web address] Patient Education 2023 ulike. Follow Up Care 07/23/2024 13:38:07 With:STEWART TAYLOR, JANIA, SRINIVASAN Address: When: Unknown [facility] 07-27-2024 Note Patient Education Oncology Prostate-Specific Antigen Test Why am I having this test? The prostate-specific antigen (PSA) test is a screening test for prostate cancer. It can identify early signs of prostate cancer, which may allow for early detection and more effective treatment. Your health care provider may recommend that you have a PSA test starting at age 50 or that you have one earlier if you are at higher risk for prostate cancer. You may also have a PSA test: ? To monitor treatment of prostate cancer. ? To check whether prostate cancer has returned after treatment. What is being tested? This test measures the amount of PSA in your blood. PSA is a protein that is made in the prostate. The prostate naturally produces more PSA as you age, but very high levels may be a sign of a medical condition. What kind of sample is taken? A blood sample is required for this test. It is usually collected by inserting a needle into a blood vessel but can also be collected by sticking a finger with a small needle. Blood for this test should be drawn before having an exam of the prostate that involves digital rectal examination to avoid affecting the results. How do I prepare for this test? Do not ejaculate starting 24 hours before your test, or as long as told by your health care provider, as this can cause an elevation in PSA. Do not undergo any procedures that require manipulation of the prostate, such as biopsy or surgery, for 6 weeks before the test is done as this can cause an elevation in PSA. Tell a health care provider about: ? Any signs you may have of other conditions that can affect PSA levels, such as: ? An enlarged prostate that is not caused by cancer (benign prostatic hyperplasia, or BPH). This condition is very common in older men. ? A prostate or urinary tract infection. ? Any allergies you have. ? All medicines you are taking, including vitamins, herbs, eye drops, creams, and bxrs-dml-uffjldc medicines. This also includes: ? Medicines to assist with hair growth, such as finasteride. ? Any recent exposure to a medicine called diethylstilbestrol (BRIDGETT). ? Medicines such as male hormones (like testosterone) or other medicines that raise testosterone levels. ? Any bleeding problems you have. ? Any recent procedures you have had, especially any procedures involving the prostate or rectum. ? Any medical conditions you have. How are the results reported? Your test results will be reported as a value that indicates how much PSA is in your blood. This will be given as nanograms of PSA per milliliter of blood (ng/mL). Your health care provider will compare your results to normal ranges that were established after testing a large group of people (reference ranges). Reference ranges may vary among labs and hospitals. PSA levels vary from person to person and generally increase with age. Because of this variation, there is no single PSA value that is considered normal for everyone. Instead, PSA reference ranges are used to describe whether your PSA levels are considered low or high (elevated). Common reference ranges are: ? Low: 0?2.5 ng/mL. ? Slightly to moderately elevated: 2.6?10.0 ng/mL. ? Moderately elevated: 10.0?19.9 ng/mL. ? Significantly elevated: 20 ng/mL or greater. What do the results mean? A test result that is higher than 4 ng/mL may mean that you have prostate cancer. However, a PSA test by itself is not enough to diagnose prostate cancer. High PSA levels may also be caused by the natural aging process, prostate infection (prostatitis), or BPH. ? PSA screening cannot tell you if your PSA is high due to cancer or a different cause. ? A prostate biopsy is the only way to diagnose prostate cancer. A risk of having the PSA test is diagnosing and treating prostate cancer that would never have caused any symptoms or problems (overdiagnosis and overtreatment). Talk with your health care provider about what your results mean. In some cases, your health care provider may do more testing to confirm the results. Questions to ask your health care provider Ask your health care provider, or the department that is doing the test: ? When will my results be ready? ? How will I get my results? ? What are my treatment options? ? What other tests do I need? ? What are my next steps? Summary ? The prostate-specific antigen (PSA) test is a screening test for prostate cancer. ? Your health care provider may recommend that you have a PSA test starting at age 50 or that you have one earlier if you are at higher risk for prostate cancer. ? A test result that is higher than 4 ng/mL may mean that you have prostate cancer. However, elevated levels can be caused by a number of conditions other than prostate cancer. ? Talk with your health care provider about what your results mean. This information is not intended to replace advice given to you by your health care provider. Make sure you disc (more content not included)... [facility] 08-05-2022 Evaluation note Encounter Date Diagnosis Assessment Notes Jul, Tooth infection (ICD-10 - K04.7) Take medications as directed.Highly encourage patient to contact dentist SOFI for further treatment of infection. 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 Extensive discussion about current condition and treatment options available. We performed a marcaine / kenalog cortisone injection into the left knee joint under sterile technique. Patient tolerated the injection well without adverse reaction. Continue gentle motion and strengthening exercises. [facility] Other 03-22-2022 Evaluation note* Encounter Date Diagnosis Assessment Notes Treatment Notes Treatment Clinical Notes Dec, Pain in right knee (ICD-10 - M25.561) Dec, Pain in left knee (ICD-10 - M25.562) Dec, Primary osteoarthritis of both knees (ICD-10 - M17.0) We performed a kenalog cortisone injection into the right knee joint under sterile technique. Patient tolerated the injection well without adverse reaction. We discussed and demonstrated gentle motion exericse to be performed daily, multiple times per day. [facility] Other 12-22-2021 Evaluation note* Encounter Date Diagnosis Assessment Notes Treatment Notes Treatment Clinical Notes Sep, Empyema (ICD-10 - J86.9) Given clinical and radiographic improvement no need for further x-ray or CT evaluation, will evaluate already with development of symptoms. Otherwise he will be seen here on an as-needed basis Sep, Pneumonia of right lower lobe due to infectious organism (ICD-10 - J18.9) [facility] Other 10-20-2021 Evaluation note* Encounter Date Diagnosis Assessment Notes Treatment Notes Treatment Clinical Notes Jul, Contact with and (suspected) exposure to other viral communicable diseases (ICD-10 - Z20.828) Jul, COVID-19 (ICD-10 - U07.1) Jul, Other Additional time spent conducting pre-visit phone call, screening for symptoms, instructions on social distancing, application and removal of PPE, and cleaning of examination room, equipment and supplies was preformed. Patient education given for testing methodology and results. Patient care instructions given in writting by [facility] document. 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 Medical History empyema lung Medical History enlarged prostate Medical History COVID X 1 YEAR AGO Surgical History Left Hip Replacement 2019 Surgical History appendectomy Hospitalization History see above Hospitalization History INFECTION IN LUNG FROM A TOOTH INFECTION AFTER COVID [facility] Other Evaluation + Plan note Future Appointments Appointment Date:07/27/2024 08:45:00 AM Scheduled Provider:JANIA WILLIAM MD Location:[facility] Appointment Type:URO New Patient [facility] evaluation + Plan note Future Appointments Appointment Date:08/03/2024 09:30:00 AM Scheduled Provider:JANIA WILLIAM MD Location:[facility] Appointment Type:URO Office Visit Diagnostic Tests Pending * PSA Total 07/27/24 [facility] Evaluation + Plan note Future Appointments Appointment Date:08/10/2024 08:00:00 AM Scheduled Provider:JANIA WILLIAM MD Location:[facility] Appointment Type:URO Office Visit [facility] Evaluation noteNoPrize[employer] Other Evaluation noteNo InformationBI[employer] Other Evaluation note* Diagnosis Onset Date Resolution Status Abnormal heart rate acute HTN (hypertension) acute Peyronie's disease acute [facility] Work Phone: History general Narrative - Reported* Type Description Date Medical History Hypertension 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 Surgical History Left Hip Replacement 2020 Hospitalization History see above [facility] Other History general Narrative - Reported* Type Description Date Medical History Hypertension 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 Medical History empyema lung Medical History enlarged prostate Surgical History Left Hip Replacement 2019 Surgical History appendectomy Hospitalization History see above [facility] Other [place] general [place] - [place] [employer] Other Hospital course Narrative No data available for this section [facility] [employer] Hospital Discharge instructions No data available for this section [facility] [employer] progress note No data available for this section [facility] [employer] Summary Purpose Family History Relationship Condition Age at Onset Recorded Date/T osmar mother Malignant neoplasm of lung Unknown father Unknown mother Unknown Malignant neoplasm Unknown Advance Directives Advance Directive Response Recorded Date/ Time Advance Directives No August 25, 2018 12:13am Chief Complaint and Reason for Visit Chief Complaint discuss medication Reason for Visit Abnormal heart rate HTN (hypertension) Peyronie's disease Additional Source Comments (unrecognized sect ion and content) No Status Records FoundNo Status Records FoundNo Status Records Found INFORMATION SOURCE (unrecogn ized section and content) DATE CREATED AUTHOR 09/26/2021 [facility] DATE CREATED AUTHOR AUTHOR'S ORGANIZ ATION 06/02/2024 [facility] DATE CREATED AUTHOR AUTHOR'S ORGANIZ ATION 08/11/2024 [facility] REASON FOR VISIT (unrecogniz ed section and content) #30 WILSON RAHUL TRUCK, COUGH, [place], COVID EXPOSURE5 wk hosp f/u EmpyemaBilateral Knee PainLeft Knee PainTOOTH PAIN SWOLLEN JAWRefill Care Teams (unrecognized sec tion and content) Personnel Name: PAT VANCE MD Address: Address: [address] [place] [address] Team Status: Active Member Role Status Dates Pat Vance MD Primary Care Provider Active Team Status: Inactive Member Role Status Dates Pat Vance MD Primary Care Provide r, Attending Provider Active Start: June 01, 2024 End: June 01, 2024 Goals (unrecognized section and content) Goals may be documented in a n alternate section FOR RECORDS PERTAINING TO PATIENTS WHO ARE OR HAVE BEEN ENROLLED IN A CHEMICAL DEPENDENCY/SUBSTANCEABUSE PROGRAM, SOME INFORMATION MAY BE OMITTED. This clinical summary was aggregated from multiple sources. Caution should be exercised in using it in the provision of clinical care. This summary normalizes information from multiple sources, and as a consequence, information in this document may materially change the coding, format and clinical context of patient data. In addition, data may be omitted in some cases. CLINICAL DECISIONS SHOULD BE BASED ON THE PRIMARY CLINICAL RECORDS. [employer] provides no warranty or guarantee of the accuracy or completeness of information in this document.
[2024-11-06 13:59] LABS: Basophils Absolute Auto 0.1 10^3/uL (0.0-0.1); Basophils Percent Auto 0.5 % (0.2-2.0); Eosinophils Percent Auto 0.3 % (0.9-7.0); Hematocrit 36.5 % (42.0-54.0); Hemoglobin 12.1 g/dL (14.0-18.0); Immature Granulocytes Pct Auto 1.1 % (0.0-0.5); Lymphocytes Percent Auto 10.5 % (20.5-60.0); Mean Corpuscular HGB Conc 33.2 g/dL (29.9-35.2); Mean Corpuscular Hemoglobin 29.9 pg (25.9-34.0); Mean Corpuscular Volume 90.1 fL (80.0-94.0); Mean Platelet Volume 11.5 fL (9.5-13.5); Monocytes Absolute Auto 0.3 10^3/uL (0.3-0.8); Monocytes Percent Auto 3.6 % (1.7-12.0); Neutrophils Absolute Auto 7.9 10^3/uL (1.4-6.5); Platelet Count 240 10^3/uL (150-450); Red Blood Count 4.05 10^6/uL (4.70-6.10); Red Cell Distribution Width 13.4 % (11.0-15.0); White Blood Count 9.4 10^3/uL (4.0-11.0)
[2024-11-06 14:45] LABS: Alanine Aminotransferase 28 U/L (16-63); Albumin Level 3.5 g/dL (3.4-5.0); Alkaline Phosphatase 72 U/L (46-116); Anion Gap 13.6; Aspartate Amino Transferase 20 U/L (15-37); Calcium 9.1 mg/dL (8.5-10.1); Carbon Dioxide 27.8 mmol/L (21.0-32.0); Chloride 103 mmol/L (98-107); Estimated GFR (African America >60 (>=60 mL/min/1.73m^2); Estimated GFR (Non-African Ame >60 (>=60 mL/min/1.73m^2); Globulin 3.5 g/dL; Glucose 129 mg/dL (74-106); Potassium 4.4 mmol/L (3.5-5.1); Sodium 140 mmol/L (136-145)
[2024-11-07 22:55] LABS: Bilirubin Total 0.7 mg/dL (0.2-1.0)
== END 2024-11-06 12:27 | disposition home or self-care (01) ==
PROVIDERS: PCP Family Medicine
DX: L10.0 Pemphigus vulgaris (principal); Z79.899 Other long term (current) drug therapy
CPT/HCPCS: 36415; 80053; 85025

== ENCOUNTER 2024-12-04 07:30 | Outpatient (OUT) | payer BC, SELFPAY ==
--- OUTSIDE RECORDS SUMMARY | 2024-12-04 07:34 | XMS_ITS | CCD ---
Author Organization [facility] CliniSywy Care Team Providers Care Check Processor Name Role Phone ROSHAN BUTLER Attending Unavailable [...] Unavailable MD Pat Vance Primary Care Provider MD Pat Vance Attending Provider Pat Vance Attending Unavailable Pat Vance Primary [...] [penicillins] Drug allergy (disorder) 4 Weal (disorder) [facility] Repository Medications Current Medications Medication Drug [...] 01-30-2022 Chronic Other aftercare (1 source) Other jail (current) drug therapy; Translations: [OTH TALENT SCOUT CURRENT DRUG THERAPY] Onset: 08-30-2021 Episodic Other [...] Value Interpretation Reference Range Facility [facility] Patient Letter [facility] August 10, 2024 BRITTANY CABALLERO [address] [place] [id number] : 1965 Dear Brittany, You missed your [...] your consideration regarding any future cancellations. Sincerely, [facility] [phone] x [phone] Patient did cancel his appointment through the automated reminder system, but it was not seen until after his appointment was passed. [facility] [place] [facility] [facility] Patient Letter [facility] August 03, 2024 BRITTANY CABALLERO [address] [place] [id number] : 1965 Dear Brittany, You missed your [...] consideration regarding any future cancellations. Please call [phone] to reschedule your appointment. Sincerely, [facility] [address] [place] [address] [facility] Ambulatory Visit Summaryon 0 07-27-2024 Ambulatory Visit [...] including vitamins, herbs, eye drops, creams, and [id number] medicines. This also includes: ? Medicines to [...] do t (more content not included)... Normal [facility] Urology Office/Clinic Noteon 07-27-2024 Urology Office/Clinic Note [...] with voice recognition artificial intelligence software, specifically [employer], [employer] and or [employer] Experience. Substitutions may have occurred due to the [...] notes intermit (more content not included)... Normal [facility] Comment on above: Result Comment: Elec tronically Signed By: STEWART TAYLORJANIA\.br\Date and Time Signed: 07/27/24 09:47 EDT\.br\Electronically Co-Signed By: Mitzy Grissom\.br\Date and Time Co-Signed: 07/27/24 09:40 EDT CBC AUTO DIFFon 09-07-2021 BASO # 0.0 103/ul Normal 0.0-0.1 [facility] Comment on above: Performed By: #### L ACT #### [facility] [address] [address] [address] Thomas Reina Basophils/100 WBC (Bld) 0.3 % Normal 0.2-2.0 [facility] Comment on above: Performed By: #### L ACT #### [facility] [address] [address] [address] Thomas Reina EO # 0.1 103/ul Normal 0.0-0.7 [facility] Comment on above: Performed By: #### L ACT #### [facility] [address] [address] [address] Thomas Reina Eosinophils/100 WBC (Bld) 0.6 % Critically low 0.9-7.0 [facility] Comment on above: Performed By: #### L ACT #### [facility] [address] [address] [address] Thomas Reina Erythrocyte distribution width (RBC) [Ratio] 13.7 % Normal 11.0-15.0 [facility] Comment on above: Performed By: #### L ACT #### [facility] [address] [address] [address] Thomas Reina Hematocrit (Bld) [Volume fraction] 31.3 % Critically low 42.0-54.0 [facility] Comment on above: Performed By: #### L ACT #### [facility] [address] [address] [address] Thomas Reina Hemoglobin (Bld) [Mass/Vol] 9.8 g/dL Critically low 14.0-18.0 [facility] Comment on above: Performed By: #### L ACT #### [facility] [address] [address] [address] Thomas Reina IG # 0.13 10e3/ul Critically high 0.00-0.03 [facility] Comment on above: Performed By: #### L ACT #### [facility] [address] [place] [address] Dr. Thomas Reina IG % 0.9 % Critically high 0.0-0.5 [facility] Comment on above: Performed By: #### L ACT #### [facility] [address] [place] [address] Dr. Thomas Reina LYMPH # 1.4 103/ul Normal 1.2-3.8 [facility] Comment on above: Performed By: #### L ACT #### [facility] [address] [place] [address] Dr. Thomas Reina Lymphocytes/100 WBC (Bld) 9.2 % Critically low 20.5-60.0 [facility] Comment on above: Performed By: #### L ACT #### [facility] [address] [place] [address] Dr. Thomas Reian MANUAL DIFF REQ NO Normal [facility] Comment on above: Performed By: #### L ACT #### [facility] [address] [place] [address] Dr. Thomas Reina MCH (RBC) [Entitic mass] 27.6 pg Normal 25.9-34.0 [facility] Comment on above: Performed By: #### L ACT #### [facility] [address] [place] [address] Dr. Thomas Reina MCHC (RBC) [Mass/Vol] 31.3 g/dL Normal 29.9-35.2 [facility] Comment on above: Performed By: #### L ACT #### [facility] [address] [place] [address] Dr. Thomas Reina MCV (RBC) [Entitic vol] 88.2 fL Normal 80.0-94.0 [facility] Comment on above: Performed By: #### L ACT #### [facility] [address] [place] [address] Dr. Thomas Reina MONO # 1.1 103/ul Critically high 0.3-0.8 [facility] Comment on above: Performed By: #### L ACT #### [facility] [address] [address] [address] Thomas Reina Monocytes/100 WBC (Bld) 7.3 % Normal 1.7-12.0 [facility] Comment on above: Performed By: #### L ACT #### [facility] [address] [address] [address] Thomas Reina NEUT # 12.4 103/ul Critically high 1.4-6.5 [facility] Comment on above: Performed By: #### L ACT #### [facility] [address] [place] [address] Dr. Thomas Reina Neutrophils/100 WBC (Bld) 81.7 % Critically high 43.0-75.0 [facility] Comment on above: Performed By: #### L ACT #### [facility] [address] [place] [address] Dr. Thomas Reina Platelet mean volume (Bld) [Entitic vol] 10.5 fL Normal 9.5-13.5 [facility] Comment on above: Performed By: #### L ACT #### [facility] [address] [place] [address] Dr. Thomas Reina PLT 314 103/ul Normal 150-450 [facility] Comment on above: Performed By: #### L ACT #### [facility] [address] [place] [address] Dr. Thomas Reina RBC 3.55 106/ul Critically low 4.70-6.10 [facility] Comment on above: Performed By: #### L ACT #### [facility] [id number] Thomas Reina WBC 15.1 103/ul Critically high 4.0-11.0 [facility] Comment on above: Performed By: #### L ACT #### [facility] [address] [place] [address] Dr. Thomas Reina PROF CHEM 8 (BAS METB)on Anion gap [Moles/Vol] 10.5 mmol/L Normal [facility] Comment on above: Performed By: #### L IPA #### [facility] [address] [address] [address] Thomas Reina Calcium [Mass/Vol] 8.1 mg/dL Critically low 8.4-10.2 [facility] Comment on above: Performed By: #### L IPA #### [facility] [address] [place] [address] Dr. Thomas Reina Chloride [Moles/Vol] 102 mmol/L Normal 98-107 [facility] Comment on above: Performed By: #### L IPA #### [facility] [address] [place] [address] Dr. Thomas Reina CO2 [Moles/Vol] 27.1 mmol/L Normal 22.0-30.0 [facility] Comment on above: Performed By: #### L IPA #### [facility] [address] [place] [address] Dr. Thomas Reina Creatinine [Mass/Vol] 0.61 mg/dL Critically low 0.66-1.25 [facility] Comment on above: Performed By: #### L IPA #### [facility] [address] [place] [address] Dr. Thomas Reina EGFR-AF ARMENIAN >60 Normal >=60 [facility] Comment on above: Performed By: #### L IPA #### [facility] [address] [place] [address] Dr. Thomas Reina EGFR-NON AF ARMENIAN >60 Normal >=60 [facility] Comment on above: Performed By: #### L IPA #### [facility] [address] [place] [address] Dr. Thomas Reina Glucose [Mass/Vol] 110 mg/dL Critically high 74-106 [facility] Comment on above: Performed By: #### L IPA #### [facility] [address] [place] [address] Dr. Thomas Reina Potassium [Moles/Vol] 3.6 mmol/L Normal 3.4-5.0 [facility] Comment on above: Performed By: #### L IPA #### [facility] [address] [address] [address] Thomas Reina Sodium [Moles/Vol] 136 mmol/L Critically low 137-145 [facility] Comment on above: Performed By: #### L IPA #### [facility] [address] [place] [address] Dr. Thomas Reina Urea nitrogen [Mass/Vol] 8.0 mg/dL Critically low 9.0-20.0 [facility] Comment on above: Performed By: #### L IPA #### [facility] [address] [place] [address] Dr. Thomas Reina Urea nitrogen/Creatinine [Mass ratio] 13.1 mg/mg Normal [facility] Comment on above: Performed By: #### L IPA #### [facility] [address] [place] [address] Dr. Thomas Reina VANCOMYCIN TROUGHon 09-07-20 VANCOMYCIN TROUGH 10.1 ug/ml Normal 5.0-20.0 [facility] Comment on above: Performed By: #### C BC #### [facility] [address] [place] [address] Dr. Thomas Reina CBC AUTO DIFFon 09-06-2021 BASO # 0.0 103/ul Normal 0.0-0.1 [facility] Comment on above: Performed By: #### C BC #### [facility] [address] [place] [address] Dr. Thomas Reina Basophils/100 WBC (Bld) 0.2 % Normal 0.2-2.0 [facility] Comment on above: Performed By: #### C BC #### [facility] [address] [place] [address] Dr. Thomas Reina EO # 0.0 103/ul Normal 0.0-0.7 [facility] Comment on above: Performed By: #### C BC #### [facility] [address] [place] [address] Dr. Thomas Reina Eosinophils/100 WBC (Bld) 0.0 % Critically low 0.9-7.0 [facility] Comment on above: Performed By: #### C BC #### [facility] [address] [place] [address] Dr. Thomas Reina Erythrocyte distribution width (RBC) [Ratio] 13.6 % Normal 11.0-15.0 [facility] Comment on above: Performed By: #### C BC #### [facility] [address] [place] [address] Dr. Thomas Reina Hematocrit (Bld) [Volume fraction] 32.5 % Critically low 42.0-54.0 [facility] Comment on above: Performed By: #### C BC #### [facility] [address] [place] [address] Dr. Thomas Reina Hemoglobin (Bld) [Mass/Vol] 10.6 g/dL Critically low 14.0-18.0 [facility] Comment on above: Performed By: #### C BC #### [facility] [address] [place] [address] Dr. Thomas Reina IG # 0.11 10e3/ul Critically high 0.00-0.03 [facility] Comment on above: Performed By: #### C BC #### [facility] [address] [place] [address] Dr. Thomas Reina IG % 0.6 % Critically high 0.0-0.5 [facility] Comment on above: Performed By: #### C BC #### [facility] [address] [place] [address] Dr. Thomas Reina LYMPH # 1.1 103/ul Critically low 1.2-3.8 [facility] Comment on above: Performed By: #### C BC #### [facility] [address] [place] [address] Dr. Thomas Reina Lymphocytes/100 WBC (Bld) 6.2 % Critically low 20.5-60.0 [facility] Comment on above: Performed By: #### C BC #### [facility] [address] [place] [address] Dr. Thomas Reina MANUAL DIFF REQ NO Normal [facility] Comment on above: Performed By: #### C BC #### [facility] [address] [address] [address] Thomas Reina MCH (RBC) [Entitic mass] 28.6 pg Normal 25.9-34.0 [facility] Comment on above: Performed By: #### C BC #### [facility] [address] [address] [address] Thomas Reina MCHC (RBC) [Mass/Vol] 32.6 g/dL Normal 29.9-35.2 [facility] Comment on above: Performed By: #### C BC #### [facility] [address] [address] [address] Thomas Reina MCV (RBC) [Entitic vol] 87.6 fL Normal 80.0-94.0 [facility] Comment on above: Performed By: #### C BC #### [facility] [address] [place] [address] Dr. Thomas Reina MONO # 0.8 103/ul Normal 0.3-0.8 [facility] Comment on above: Performed By: #### C BC #### [facility] [address] [place] [address] Dr. Thomas Reina Monocytes/100 WBC (Bld) 4.6 % Normal 1.7-12.0 [facility] Comment on above: Performed By: #### C BC #### [facility] [address] [address] [address] Thomas Reina NEUT # 15.5 103/ul Critically high 1.4-6.5 [facility] Comment on above: Performed By: #### C BC #### [facility] [address] [address] [address] Thomas Reina Neutrophils/100 WBC (Bld) 88.4 % Critically high 43.0-75.0 [facility] Comment on above: Performed By: #### C BC #### [facility] [address] [place] [address] Dr. Thomas Reina Platelet mean volume (Bld) [Entitic vol] 10.8 fL Normal 9.5-13.5 [facility] Comment on above: Performed By: #### C BC #### [facility] [address] [address] [address] Thomas Reina PLT 332 103/ul Normal 150-450 [facility] Comment on above: Performed By: #### C BC #### [facility] [address] [address] [address] Thomas Reina RBC 3.71 106/ul Critically low 4.70-6.10 [facility] Comment on above: Performed By: #### C BC #### [facility] [address] [address] [address] Thomas Renia WBC 17.6 103/ul Critically high 4.0-11.0 [facility] Comment on above: Performed By: #### C BC #### [facility] [address] [place] [address] Dr. Thomas Reina PROF CHEM 8 (BAS METB)on Anion gap [Moles/Vol] 14.0 mmol/L Normal [facility] Comment on above: Performed By: #### C BC #### [facility] [address] [place] [address] Dr. Thomas Reina Calcium [Mass/Vol] 8.9 mg/dL Normal 8.4-10.2 [facility] Comment on above: Performed By: #### C BC #### [facility] [address] [address] [address] Thomas Reina Chloride [Moles/Vol] 100 mmol/L Normal 98-107 [facility] Comment on above: Performed By: #### C BC #### [facility] [address] [address] [address] Thomas Reina CO2 [Moles/Vol] 24.3 mmol/L Normal 22.0-30.0 [facility] Comment on above: Performed By: #### C BC #### [facility] [address] [place] [address] Dr. Thomas Reina Creatinine [Mass/Vol] 0.64 mg/dL Critically low 0.66-1.25 [facility] Comment on above: Performed By: #### C BC #### [facility] [address] [address] [address] Thomas Reina EGFR-AF ARMENIAN >60 Normal >=60 [facility] Comment on above: Performed By: #### C BC #### [facility] [address] [address] [address] Thomas Reina EGFR-NON AF ARMENIAN >60 Normal >=60 [facility] Comment on above: Performed By: #### C BC #### [facility] [address] [address] [address] Thomas Reina Glucose [Mass/Vol] 155 mg/dL Critically high 74-106 [facility] Comment on above: Performed By: #### C BC #### [facility] [address] [address] [address] Thomas Reina Potassium [Moles/Vol] 4.3 mmol/L Normal 3.4-5.0 [facility] Comment on above: Performed By: #### C BC #### [facility] [address] [place] [address] Dr. Thomas Reina Sodium [Moles/Vol] 134 mmol/L Critically low 137-145 [facility] Comment on above: Performed By: #### C BC #### [facility] [address] [place] [address] Dr. Thomas Reina Urea nitrogen [Mass/Vol] 9.0 mg/dL Normal 9.0-20.0 [facility] Comment on above: Performed By: #### C BC #### [facility] [address] [place] [address] Dr. Thomas Reina Urea nitrogen/Creatinine [Mass ratio] 14.1 mg/mg Normal [facility] Comment on above: Performed By: #### C BC #### [facility] [address] [place] [address] Dr. Thomas Reina CBC W MANUAL DIFFon 09-05-20 21 ANISOCYTOSIS SLIGHT Normal [facility] Comment on above: Performed By: #### C BC #### [facility] [address] [place] [address] Dr. Thomas Reina ATYPICAL LYMPH # Normal [facility] Comment on above: Performed By: #### C BC #### [facility] [address] [address] [address] Thomas Reina ATYPICAL LYMPH % Normal [facility] Comment on above: Performed By: #### C BC #### [facility] [address] [address] [address] Thomas Reina BAND # 0.5 103/ul Critically high 0.0-0.3 [facility] Comment on above: Performed By: #### C BC #### [facility] [address] [address] [address] Thomas Reina BAND % 2 % Normal 0-5 [facility] Comment on above: Performed By: #### C BC #### [facility] [address] [place] [address] Dr. Thomas Reina BASOM # 0.23 103/ul Critically high 0.00-0.10 [facility] Comment on above: Performed By: #### C BC #### [facility] [address] [place] [address] Dr. Thomas Reina BASOM % 1.0 % Normal 0.2-2.0 [facility] Comment on above: Performed By: #### C BC #### [facility] [address] [place] [address] Dr. Thomas Reina BLAST # Normal [facility] Comment on above: Performed By: #### C BC #### [facility] [address] [place] [address] Dr. Thomas Reina BLAST % Normal [facility] Comment on above: Performed By: #### C BC #### [facility] [address] [address] [address] Thomas Reina CORRECTED WBC Normal 4.0-11.0 [facility] Comment on above: Performed By: #### C BC #### [facility] [address] [place] [address] Dr. Thomas Reina EOS # 0.00 103/ul Normal 0.00-0.70 [facility] Comment on above: Performed By: #### C BC #### [facility] [address] [address] [address] Thomas Reina EOS% 0.0 % Critically low 0.9-7.0 [facility] Comment on above: Performed By: #### C BC #### [facility] [address] [address] [address] Thomas Reina HCT 34.4 % Critically low 42.0-54.0 [facility] Comment on above: Performed By: #### C BC #### [facility] [address] [address] [address] Thomas Reina HGB 11.4 g/dl Critically low 14.0-18.0 [facility] Comment on above: Performed By: #### C BC #### [facility] [address] [place] [address] Dr. Thomas Reina LYMPHM # 1.38 103/ul Normal 1.20-3.80 [facility] Comment on above: Performed By: #### C BC #### [facility] [address] [place] [address] Dr. Thomas Reina LYMPHM% 6.0 % Critically low 20.5-60.0 [facility] Comment on above: Performed By: #### C BC #### [facility] [address] [place] [address] Dr. Thomas Reina MCH 28.1 pg Normal 25.9-34.0 [facility] Comment on above: Performed By: #### C BC #### [facility] [address] [place] [address] Dr. Thomas Reina MCHC 33.1 g/dl Normal 29.9-35.2 [facility] Comment on above: Performed By: #### C BC #### [facility] [address] [place] [address] Dr. Thomas Reina MCV 84.9 fL Normal 80.0-94.0 [facility] Comment on above: Performed By: #### C BC #### [facility] [address] [place] [address] Dr. Thomas Reina METAMYELOCYTE # Normal [facility] Comment on above: Performed By: #### C BC #### [facility] [address] [place] [address] Dr. Thomas Reina METAMYELOCYTE % Normal [facility] Comment on above: Performed By: #### C BC #### [facility] [address] [address] [address] Thomas Reina MONOM# 1.38 103/ul Critically high 0.30-0.80 [facility] Comment on above: Performed By: #### C BC #### [facility] [address] [address] [address] Thomas Reina MONOM% 6.0 % Normal 1.7-12.0 [facility] Comment on above: Performed By: #### C BC #### [facility] [address] [place] [address] Dr. Thomas Reina MPV 10.6 fL Normal 9.5-13.5 [facility] Comment on above: Performed By: #### C BC #### [facility] [address] [place] [address] Dr. Thomas Reina MYELOCYTE # Normal [facility] Comment on above: Performed By: #### C BC #### [facility] [address] [place] [address] Dr. Thomas Reina MYELOCYTE % Normal [facility] Comment on above: Performed By: #### C BC #### [facility] [address] [place] [address] Dr. Thomas Reina NRBC Normal [facility] Comment on above: Performed By: #### C BC #### [facility] [address] [place] [address] Dr. Thomas Reina PLT 426 103/ul Normal 150-450 [facility] Comment on above: Performed By: #### C BC #### [facility] [address] [place] [address] Dr. Thomas Reina RBC 4.05 106/ul Critically low 4.70-6.10 [facility] Comment on above: Performed By: #### C BC #### [facility] [address] [place], [place] [address] Dr. Thomas Reina RDW 13.5 % Normal 11.0-15.0 [facility] Comment on above: Performed By: #### C BC #### [facility] [address] [place], [place] [address] Dr. Thomas Reina SEG # 19.55 103/ul Critically high 1.40-6.50 [facility] Comment on above: Performed By: #### C BC #### [facility] [address] [place], [place] [address] Dr. Thomas Reina SEG % 85.0 % Critically high 43.0-75.0 [facility] Comment on above: Performed By: #### C BC #### [facility] [address] [place], [place] [address] Dr. Thomas Reina WBC 23.0 103/ul Critically high 4.0-11.0 [facility] Comment on above: Performed By: #### C BC #### [facility] [address] [place], [place] [address] Dr. Thomas Reina CTA CHEST WO W [...] by: ROBERT CURTIS Date: 2021-09-05 20:28 Normal [facility] CULTURE BLOODon 09-05-2021 Microscopic examination of blood, culture Culture Observations: NO GROWTH AT 5 DAYS. Normal [facility] Comment on above: Performed By: #### C BC #### [facility] [address] [place] [address] Dr. Thomas Reina Microscopic examination of blood, culture Culture Observations: NO GROWTH AT 5 DAYS. Normal [facility] Comment on above: Performed By: #### C BC #### [facility] [address] [place] [address] Dr. Thomas Reina LACTATE/LACTIC ACIDon 2020 Lactate [Moles/Vol] 1.1 mmol/L Normal 0.7-2.0 [facility] Comment on above: Performed By: #### L ACT #### [facility] [address] [place] [address] Dr. Thomas Reina PROF 14(COMP METB)on 021 Albumin [Mass/Vol] 1.9 g/dL Critically low 3.5-5.0 Th [facility] Comment on above: Performed By: #### L IPA #### [facility] [address] [place] [address] Dr. Thomas Reina Albumin/Globulin [Mass ratio] 0.3 {ratio} [facility] Comment on above: Performed By: #### L IPA #### [facility] [address] [place] [address] Dr. Thomas Reina ALP [Catalytic activity/Vol] 195 U/L Critically high 38-126 [facility] Comment on above: Performed By: #### L IPA #### [facility] [address] [place] [address] Dr. Thomas Reina ALT [Catalytic activity/Vol] 27 U/L Normal 21-72 [facility] Comment on above: Performed By: #### L IPA #### [facility] [address] [address] [address] Thomas Reina Anion gap [Moles/Vol] 10.2 mmol/L Normal [facility] Comment on above: Performed By: #### L IPA #### [facility] [address] [address] [address] Thomas Reina AST [Catalytic activity/Vol] 21 U/L Normal 17-59 [facility] Comment on above: Performed By: #### L IPA #### [facility] [address] [address] [address] Thomas Reina Bilirubin [Mass/Vol] 1.8 mg/dL Critically high 0.2-1.3 [facility] Comment on above: Performed By: #### L IPA #### [facility] [address] [address] [address] Thomas Reina Calcium [Mass/Vol] 8.7 mg/dL Normal 8.4-10.2 [facility] Comment on above: Performed By: #### L IPA #### [facility] [address] [address] [address] Thomas Reina Chloride [Moles/Vol] 91 mmol/L Critically low 98-107 [facility] Comment on above: Performed By: #### L IPA #### [facility] [address] [address] [address] Thomas Reina CO2 [Moles/Vol] 27.3 mmol/L Normal 22.0-30.0 [facility] Comment on above: Performed By: #### L IPA #### [facility] [address] [address] [address] Thomas Reina Creatinine [Mass/Vol] 0.78 mg/dL Normal 0.66-1.25 [facility] Comment on above: Performed By: #### L IPA #### [facility] [address] [address] [address] Thomas Reina EGFR-AF ARMENIAN >60 Normal >=60 [facility] Comment on above: Performed By: #### L IPA #### [facility] [address] [address] [address] Thomas Reina EGFR-NON AF ARMENIAN >60 Normal >=60 [facility] Comment on above: Performed By: #### L IPA #### [facility] [address] [address] [address] Thomas Reina Globulin (S) [Mass/Vol] 5.6 g/dL Normal [facility] Comment on above: Performed By: #### L IPA #### [facility] [address] [address] [address] Thomas Reina Glucose [Mass/Vol] 140 mg/dL Critically high 74-106 T [facility] Comment on above: Performed By: #### L IPA #### [facility] [address] [address] [address] Thomas Reina Potassium [Moles/Vol] 3.5 mmol/L Normal 3.4-5.0 [facility] Comment on above: Performed By: #### L IPA #### [facility] [address] [place] [address] Dr. Thomas Reina Protein [Mass/Vol] 7.5 g/dL Normal 6.1-8.2 [facility] Comment on above: Performed By: #### L IPA #### [facility] [address] [place] [address] Dr. Thomas Reina Sodium [Moles/Vol] 125 mmol/L Critically low 137-145 Th [facility] Comment on above: Performed By: #### L IPA #### [facility] [address] [address] [address] Thomas Reina Urea nitrogen [Mass/Vol] 5.0 mg/dL Critically low 9.0-20.0 [facility] Comment on above: Performed By: #### L IPA #### [facility] [address] [place] [address] Dr. Thomas Reina Urea nitrogen/Creatinine [Mass ratio] 6.4 mg/mg Normal [facility] Comment on above: Performed By: #### L IPA #### [facility] [address] [place] [address] Dr. Thomas Reina XR CHEST 1 Von [...] DAMASO KRAMER Date: 2021-09-05 21:18 Normal [facility] AMMONIAon 08-23-2021 Ammonia (P) [Moles/Vol] 15 umol/L Normal 08-26 [facility] Comment on above: Performed By: #### L IPA #### [facility] [address] [place] [address] Dr. Thomas Reina BILIRUBIN CONJUGATED (DIRECT )on 08-23-2021 BILI, CONJUGATED 1.0 mg/dL Critically high 0.0-0.3 [facility] Comment on above: Result Comment: Test Repeated. Critical Value Verified Performed By: #### L ACT #### [facility] [address] [place] [address] Dr. Thomas Reina CBC W MANUAL DIFFon 08-23-20 21 ATYPICAL LYMPH # Normal [facility] Comment on above: Performed By: #### L ACT #### [facility] [address] [place] [address] Dr. Thomas Reina ATYPICAL LYMPH % Normal [facility] Comment on above: Performed By: #### L ACT #### [facility] [address] [place] [address] Dr. Thomas Reina BAND # 0.0 103/ul Normal 0.0-0.3 [facility] Comment on above: Performed By: #### L ACT #### [facility] [address] [place] [address] Dr. Thomas Riena BAND % 0 % Normal 0-5 [facility] Comment on above: Performed By: #### L ACT #### [facility] [address] [address] [address] Thomas Reina BASOM # 0.00 103/ul Normal 0.00-0.10 [facility] Comment on above: Performed By: #### L ACT #### [facility] [address] [address] [address] Thomas Reina BASOM % 0.0 % Critically low 0.2-2.0 [facility] Comment on above: Performed By: #### L ACT #### [facility] [address] [address] [address] Thomas Reina BLAST # Normal [facility] Comment on above: Performed By: #### L ACT #### [facility] [address] [address] [address] Thomas Reina BLAST % Normal [facility] Comment on above: Performed By: #### L ACT #### [facility] [address] [place] [address] Dr. Thomas Reina CORRECTED WBC Normal 4.0-11.0 [facility] Comment on above: Performed By: #### L ACT #### [facility] [address] [place] [address] Dr. Thomas Reina EOS # 0.00 103/ul Normal 0.00-0.70 [facility] Comment on above: Performed By: #### L ACT #### [facility] [address] [place] [address] Dr. Thomas Reina EOS% 0.0 % Critically low 0.9-7.0 [facility] Comment on above: Performed By: #### L ACT #### [facility] [address] [place] [address] Dr. Thomas Reina HCT 39.3 % Critically low 42.0-54.0 [facility] Comment on above: Performed By: #### L ACT #### [facility] [address] [place] [address] Dr. Thomas Reina HGB 12.8 g/dl Critically low 14.0-18.0 [facility] Comment on above: Performed By: #### L ACT #### [facility] [address] [place] [address] Dr. Thomas Reina LYMPHM # 0.20 103/ul Critically low 1.20-3.80 [facility] Comment on above: Performed By: #### L ACT #### [facility] [address] [place] [address] Dr. Thomas Reina LYMPHM% 2.0 % Critically low 20.5-60.0 [facility] Comment on above: Performed By: #### L ACT #### [facility] [address] [place] [address] Dr. Thomas Reina MCH 28.2 pg Normal 25.9-34.0 [facility] Comment on above: Performed By: #### L ACT #### [facility] [address] [place] [address] Dr. Thomas Reina MCHC 32.6 g/dl Normal 29.9-35.2 [facility] Comment on above: Performed By: #### L ACT #### [facility] [address] [place] [address] Dr. Thomas Reina MCV 86.6 fL Normal 80.0-94.0 [facility] Comment on above: Performed By: #### L ACT #### [facility] [address] [place] [address] Dr. Thomas Reina METAMYELOCYTE # Normal [facility] Comment on above: Performed By: #### L ACT #### [facility] [address] [place] [address] Dr. Thomas Reina METAMYELOCYTE % Normal [facility] Comment on above: Performed By: #### L ACT #### [facility] [address] [place] [address] Dr. Thomas Reina MONOM# 0.30 103/ul Normal 0.30-0.80 [facility] Comment on above: Performed By: #### L ACT #### [facility] [address] [place] [address] Dr. Thomas Reina MONOM% 3.0 % Normal 1.7-12.0 [facility] Comment on above: Performed By: #### L ACT #### [facility] [address] [address] [address] Thomas Reina MPV 11.1 fL Normal 9.5-13.5 [facility] Comment on above: Performed By: #### L ACT #### [facility] [address] [address] [address] Thomas Reina MYELOCYTE # Normal [facility] Comment on above: Performed By: #### L ACT #### [facility] [address] [address] [address] Thomas Reina MYELOCYTE % Normal [facility] Comment on above: Performed By: #### L ACT #### [facility] [address] [address] [address] Thomas Reina NRBC Normal [facility] Comment on above: Performed By: #### L ACT #### [facility] [address] [address] [address] Thomas Reina PLT 322 103/ul Normal 150-450 [facility] Comment on above: Performed By: #### L ACT #### [facility] [address] [address] [address] Thomas Reina RBC 4.54 106/ul Critically low 4.70-6.10 [facility] Comment on above: Performed By: #### L ACT #### [facility] [address] [address] [address] Thomas Reina RDW 13.8 % Normal 11.0-15.0 [facility] Comment on above: Performed By: #### L ACT #### [facility] [address] [address] [address] Thomas Reina SEG # 9.60 103/ul Critically high 1.40-6.50 [facility] Comment on above: Performed By: #### L ACT #### [facility] [address] [address] [address] Thomas Reina SEG % 95.0 % Critically high 43.0-75.0 [facility] Comment on above: Performed By: #### L ACT #### [facility] [address] [place] [address] Dr. Thomas Reina WBC 10.1 103/ul Normal 4.0-11.0 [facility] Comment on above: Performed By: #### L ACT #### [facility] [address] [place] [address] Dr. Thomas Reina LIPASEon 08-23-2021 Lipase [Catalytic activity/Vol] 157.0 U/L Normal 23.0-300.0 [facility] Comment on above: Performed By: #### L ACT #### [facility] [address] [place] [address] Dr. Thomas Reina PROF 14(COMP METB)on 021 Albumin [Mass/Vol] 2.3 g/dL Critically low 3.5-5.0 [facility] Comment on above: Performed By: #### L ACT #### [facility] [address] [place] [address] Dr. Thomas Reina Albumin/Globulin [Mass ratio] 0.4 {ratio} Normal [facility] Comment on above: Performed By: #### L ACT #### [facility] [address] [place] [address] Dr. Thomas Reina ALP [Catalytic activity/Vol] 133 U/L Critically high 38-126 [facility] Comment on above: Performed By: #### L ACT #### [facility] [address] [place] [address] Dr. Thomas Reina ALT [Catalytic activity/Vol] 57 U/L Normal 21-72 [facility] Comment on above: Performed By: #### L ACT #### [facility] [address] [place] [address] Dr. Thomas Reina Anion gap [Moles/Vol] 14.0 mmol/L Normal [facility] Comment on above: Performed By: #### L ACT #### [facility] [address] [place] [address] Dr. Thomas Reina AST [Catalytic activity/Vol] 35 U/L Normal 17-59 [facility] Comment on above: Performed By: #### L ACT #### [facility] [address] [address] [address] Thomas Reina Bilirubin [Mass/Vol] 1.6 mg/dL Critically high 0.2-1.3 [facility] Comment on above: Performed By: #### L ACT #### [facility] [address] [address] [address] Thomas Reina Calcium [Mass/Vol] 8.9 mg/dL Normal 8.4-10.2 [facility] Comment on above: Performed By: #### L ACT #### [facility] [address] [address] [address] Thomas Reina Chloride [Moles/Vol] 99 mmol/L Normal 98-107 [facility] Comment on above: Performed By: #### L ACT #### [facility] [address] [place] [address] Dr. Thomas Reina CO2 [Moles/Vol] 27.1 mmol/L Normal 22.0-30.0 [facility] Comment on above: Performed By: #### L ACT #### [facility] [address] [address] [address] Thomas Reina Creatinine [Mass/Vol] 0.86 mg/dL Normal 0.66-1.25 [facility] Comment on above: Performed By: #### L ACT #### [facility] [address] [address] [address] Thomas Reina EGFR-AF ARMENIAN >60 Normal >=60 [facility] Comment on above: Performed By: #### L ACT #### [facility] [address] [address] [address] Thomas Reina EGFR-NON AF ARMENIAN >60 Normal >=60 [facility] Comment on above: Performed By: #### L ACT #### [facility] [address] [address] [address] Thomas Reina Globulin (S) [Mass/Vol] 5.3 g/dL Normal [facility] Comment on above: Performed By: #### L ACT #### [facility] [address] [address] [address] Thomas Reina Glucose [Mass/Vol] 190 mg/dL Critically high 74-106 T [facility] Comment on above: Performed By: #### L ACT #### [facility] [address] [address] [address] Thoams Reina Potassium [Moles/Vol] 4.1 mmol/L Normal 3.4-5.0 [facility] Comment on above: Performed By: #### L ACT #### [facility] [address] [address] [address] Thomas Reina Protein [Mass/Vol] 7.6 g/dL Normal 6.1-8.2 [facility] Comment on above: Performed By: #### L ACT #### [facility] [address] [address] [address] Thomas Reina Sodium [Moles/Vol] 136 mmol/L Critically low 137-145 [facility] Comment on above: Performed By: #### L ACT #### [facility] [address] [address] [address] Thomas Reina Urea nitrogen [Mass/Vol] 15.0 mg/dL Normal 9.0-20.0 [facility] Comment on above: Performed By: #### L ACT #### [facility] [address] [place] [address] Dr. Thomas Reina Urea nitrogen/Creatinine [Mass ratio] 17.4 mg/mg Normal [facility] Comment on above: Performed By: #### L ACT #### [facility] [address] [address] [address] Thomas Reina TSHon 08-23-2021 TSH 0.300 uIU/mL Critically low 0.470-4.680 [facility] Comment on above: Performed By: #### L ACT #### [facility] [address] [id number] Thomas Reina TSH RANGE SEE BELOW Normal [facility] Comment on above: Result Comment: <0.3 4 UIU/ml HYPERTHYROID 0.34-5.60 UIU/ml EUTHYROID >5.60 UIU/ml HYPOTHYROID Performed By: #### L ACT #### [facility] [address] [place] [address] Dr. Thomas Reina ACETAMINOPHENon 08-22-2021 Acetaminophen [Mass/Vol] ug/mL Critically low 10.1-30.0 [facility] Comment on above: Performed By: #### S ALYC, ACET, ETH #### [facility] [address] [place] [address] Dr. Thomas Reina BNPon 08-22-2021 Natriuretic peptide B (Bld) [Mass/Vol] 484.0 pg/mL Normal <=900.0 [facility] Comment on above: Performed By: #### C BC #### [facility] [address] [place] [address] Dr. Thomas Reina CBC W MANUAL DIFFon 08-22-20 ANISOCYTOSIS SLIGHT Normal [facility] Comment on above: Performed By: #### C NEW #### [facility] [address] [place] [address] Dr. Thomas Reina ATYPICAL LYMPH # Normal [facility] Comment on above: Performed By: #### C NEW #### [facility] [address] [place] [address] Dr. Thomas Reina ATYPICAL LYMPH % Normal [facility] Comment on above: Performed By: #### C BCMAN #### [facility] [address] [place] [address] Dr. Thomas Reina BAND # Normal 0.0-0.3 [facility] Comment on above: Performed By: #### C BCMAN #### [facility] [address] [place] [address] Dr. Thomas Reina BAND % Normal 0-5 [facility] Comment on above: Performed By: #### C BCMAN #### [facility] [address] [place] [address] Dr. Thomas Reina BASOM # 0.00 103/ul Normal 0.00-0.10 [facility] Comment on above: Performed By: #### C RAMIROMAN #### [facility] [address] [place] [address] Dr. Thomas Reina BASOM % 0.0 % Critically low 0.2-2.0 [facility] Comment on above: Performed By: #### C NEW #### [facility] [address] [place] [address] Dr. Thomas Reina BLAST # Normal [facility] Comment on above: Performed By: #### C NEW #### [facility] [address] [place] [address] Dr. Thomas Reina BLAST % Normal [facility] Comment on above: Performed By: #### C NEW #### [facility] [address] [place] [address] Dr. Thomas Reina CORRECTED WBC Normal 4.0-11.0 [facility] Comment on above: Performed By: #### C NEW #### [facility] [address] [place] [address] Dr. Thomas Reina EOS # 0.00 103/ul Normal 0.00-0.70 [facility] Comment on above: Performed By: #### C NEW #### [facility] [address] [place] [address] Dr. Thomas Reina EOS% 0.0 % Critically low 0.9-7.0 [facility] Comment on above: Performed By: #### C NEW #### [facility] [address] [place] [address] Dr. Thomas Reina HCT 42.0 % Normal 42.0-54.0 [facility] Comment on above: Performed By: #### C NEW #### [facility] [address] [place] [address] Dr. Thomas Reina HGB 14.1 g/dl Normal 14.0-18.0 [facility] Comment on above: Performed By: #### C NEW #### [facility] [address] [place] [address] Dr. Thomas Reina LYMPHM # 1.09 103/ul Critically low 1.20-3.80 [facility] Comment on above: Performed By: #### C NEW #### [facility] [address] [place] [address] Dr. Thomas Reina LYMPHM% 6.0 % Critically low 20.5-60.0 [facility] Comment on above: Performed By: #### C NEW #### [facility] [address] [place] [address] Dr. Thomas Reina MCH 28.9 pg Normal 25.9-34.0 [facility] Comment on above: Performed By: #### C NEW #### [facility] [address] [place] [address] Dr. Thomas Reina MCHC 33.6 g/dl Normal 29.9-35.2 [facility] Comment on above: Performed By: #### C NEW #### [facility] [address] [place] [address] Dr. Thomas Reina MCV 86.1 fL Normal 80.0-94.0 [facility] Comment on above: Performed By: #### C NEW #### [facility] [address] [place] [address] Dr. Thmoas Reina METAMYELOCYTE # Normal [facility] Comment on above: Performed By: #### C NEW #### [facility] [address] [place] [address] Dr. Thomas Reina METAMYELOCYTE % Normal [facility] Comment on above: Performed By: #### C NEW #### [facility] [address] [place] [address] Dr. Thomas Reina MICROCYTOSIS 1+ Normal [facility] Comment on above: Performed By: #### C NEW #### [facility] [address] [place] [address] Dr. Thomas Reina MONOM# 1.63 103/ul Critically high 0.30-0.80 [facility] Comment on above: Performed By: #### C NEW #### [facility] [address] [place] [address] Dr. Thomas Reina MONOM% 9.0 % Normal 1.7-12.0 [facility] Comment on above: Performed By: #### C NEW #### [facility] [address] [place] [address] Dr. Thomas Reina MPV 11.1 fL Normal 9.5-13.5 [facility] Comment on above: Performed By: #### C NEW #### [facility] [address] [address] [address] Thomas Reina MYELOCYTE # Normal [facility] Comment on above: Performed By: #### C NEW #### [facility] [address] [address] [address] Thomas Reina MYELOCYTE % Normal [facility] Comment on above: Performed By: #### C NEW #### [facility] [address] [address] [address] Thomas Reina NRBC Normal [facility] Comment on above: Performed By: #### C NEW #### [facility] [address] [address] [address] Thomas Reina PLT 341 103/ul Normal 150-450 [facility] Comment on above: Performed By: #### C NEW #### [facility] [address] [address] [address] Thomas Reina RBC 4.88 106/ul Normal 4.70-6.10 [facility] Comment on above: Performed By: #### C NEW #### [facility] [address] [place] [address] Dr. Thomas Reina RDW 13.7 % Normal 11.0-15.0 [facility] Comment on above: Performed By: #### C NEW #### [facility] [address] [address] [address] Thomas Reina SEG # 15.39 103/ul Critically high 1.40-6.50 [facility] Comment on above: Performed By: #### C NEW #### [facility] [address] [address] [address] Thomas Reina SEG % 85.0 % Critically high 43.0-75.0 [facility] Comment on above: Performed By: #### C NEW #### [facility] [address] [place] [address] Dr. Thomas Reina WBC 18.1 103/ul Critically high 4.0-11.0 [facility] Comment on above: Performed By: #### C [facility] #### [facility] [address] [place] [id number] ABD/PELVIS WO CONon [...] BRITTANY PANDEY Date: 2021-08-22 16:20 Normal [facility] CTA CHEST WO W CONon 021 [...] DEANDRA RAVI Date: 2021-08-22 13:32 Normal [facility] Covid-19 PCR (CVDTB)on 07-29 SARS-CoV-2 (COVID-19) RNA LEONARD+probe Ql (Unsp spec) Not detected Normal NOT DETECTED [facility] Comment on above: Result Comment: When diagnostic testing is negative, the possibility of a false negative should be considered in the context of a patient's recent exposures and the presence of clinical signs and symptoms consistent with SARS-CoV-2. This test is not yet approved or cleared by the [place] Food and Drug Administration (FDA). This test was developed by [employer], [place], [place]. The performance characteristics of this test were validated by [facility]. The results are not intended to be used as the sole means for clinical diagnosis or patient management decisions. The [facility] is authorized under Clinical Laboratory Improvement Amendments (CLIA) to perform high- complexity testing. Performed By: #### C VDTBH #### [facility] [address] [place] [address] Dr. Thomas Reina ER URINE PROFILEon Bilirubin Ql (U) MODERATE Abnormal NEGATIVE [facility] Comment on above: Performed By: #### C BC #### [facility] [address] [place] [address] Dr. Thomas Reina Clarity (U) CLEAR Normal CLEAR [facility] Comment on above: Performed By: #### C BC #### [facility] [address] [place] [address] Dr. Thomas Reina Color (U) DK. YELLOW Normal YELLOW [facility] Comment on above: Performed By: #### C BC #### [facility] [address] [place] [address] Dr. Thomas CORTÉS A micrscopic examination will be performed if indicated. Normal [facility] Comment on above: Performed By: #### C BC #### [facility] [address] [place] [address] Dr. Thomas Reina Glucose Ql (U) Negative Normal NEGATIVE [facility] Comment on above: Performed By: #### C BC #### [facility] [address] [place] [address] Dr. Thomas Reina Hemoglobin Ql (U) Negative Normal NEGATIVE [facility] Comment on above: Performed By: #### C BC #### [facility] [address] [place] [address] Dr. Thomas Reina Ketones Ql (U) Negative Normal NEGATIVE [facility] Comment on above: Performed By: #### C BC #### [facility] [address] [place] [address] Dr. Thomas Reina LEUKOCYTES Negative Normal NEGATIVE [facility] Comment on above: Performed By: #### C BC #### [facility] [address] [place] [address] Dr. Thomas Reina Nitrite Ql (U) Negative Normal NEGATIVE [facility] Comment on above: Performed By: #### C BC #### [facility] [address] [place] [address] Dr. Thomas Reina pH (U) 6.5 [pH] Normal 5-9 [facility] Comment on above: Performed By: #### C BC #### [facility] [address] [place] [address] Dr. Thomas Reina Protein (U) [Mass/Vol] 30 mg/dL Abnormal NEGATIVE/ TRACE [facility] Comment on above: Performed By: #### C BC #### [facility] [address] [place] [address] Dr. Thomas Reina SPEC GRAVITY <=1.005 Abnormal 1.005-<=1.025 [facility] Comment on above: Performed By: #### C BC #### [facility] [address] [place] [address] Dr. Thomas Reina UR MICRO IND INDICATED Normal [facility] Comment on above: Performed By: #### C BC #### [facility] [address] [place] [address] Dr. Thomas Reina Urobilinogen Qn (U) 8 {Reese'U}/dL Abnormal 0.2 - 1.0 [facility] Comment on above: Performed By: #### C BC #### [facility] [address] [place] [address] Dr. Thomas Reina ETHANOL (BLD ALC)on 08-22-20 21 ALC NOTE NOTE: 80 mg/dl is e legal limit for a blood alcohol level Normal [facility] Comment on above: Performed By: #### S ALYC, ACET, ETH #### [facility] [address] [place] [address] Dr. Thomas Reina Ethanol [Mass/Vol] mg/dL Normal [facility] Comment on above: Performed By: #### S ALYC, ACET, ETH #### [facility] [address] [place] [address] Dr. Thomas Reina LIPASEon 08-22-2021 Lipase [Catalytic activity/Vol] 34.0 U/L Normal 23.0-300.0 [facility] Comment on above: Performed By: #### L IPA #### [facility] [address] [place] [address] Dr. Thomas Reina PROF 14(COMP METB)on 021 Albumin [Mass/Vol] 2.8 g/dL Critically low 3.5-5.0 e [facility] Comment on above: Performed By: #### B PICTURE FRAMER, HSTROPN, CMP #### [facility] [address] [place] [address] Dr. Thomas Reina Albumin/Globulin [Mass ratio] 0.5 {ratio} Normal [facility] Comment on above: Performed By: #### B PICTURE FRAMER, HSTROPN, CMP #### [facility] [address] [address] [address] Thomas Reina ALP [Catalytic activity/Vol] 172 U/L Critically high 38-126 [facility] Comment on above: Performed By: #### B PICTURE FRAMER, HSTROPN, CMP #### [facility] [address] [address] [address] Thomas Reina ALT [Catalytic activity/Vol] 84 U/L Critically high 21-72 [facility] Comment on above: Performed By: #### B PICTURE FRAMER, HSTROPN, CMP #### [facility] [address] [address] [address] Thomas Reina Anion gap [Moles/Vol] 13.7 mmol/L Normal [facility] Comment on above: Performed By: #### B PICTURE FRAMER, HSTROPN, CMP #### [facility] [address] [place] [address] Dr. Thomas Reina AST [Catalytic activity/Vol] 67 U/L Critically high 17-59 [facility] Comment on above: Performed By: #### B PICTURE FRAMER, HSTROPN, CMP #### [facility] [address] [address] [address] Thomas Reina Bilirubin [Mass/Vol] 4.6 mg/dL Critically high 0.2-1.3 [facility] Comment on above: Performed By: #### B PICTURE FRAMER, HSTROPN, CMP #### [facility] [address] [address] [address] Thomas Reina Calcium [Mass/Vol] 9.1 mg/dL Normal 8.4-10.2 [facility] Comment on above: Performed By: #### B PICTURE FRAMER, HSTROPN, CMP #### [facility] [address] [address] [address] Thomas Reina Chloride [Moles/Vol] 95 mmol/L Critically low 98-107 [facility] Comment on above: Performed By: #### B PICTURE FRAMER, HSTROPN, CMP #### [facility] [address] [address] [address] Thomas Reina CO2 [Moles/Vol] 25.9 mmol/L Normal 22.0-30.0 [facility] Comment on above: Performed By: #### B PICTURE FRAMER, HSTROPN, CMP #### [facility] [address] [place] [address] Dr. Thomas Reina Creatinine [Mass/Vol] 0.97 mg/dL Normal 0.66-1.25 [facility] Comment on above: Performed By: #### B PICTURE FRAMER, HSTROPN, CMP #### [facility] [address] [place] [address] Dr. Thomas Reina EGFR-AF ARMENIAN >60 Normal >=60 [facility] Comment on above: Performed By: #### B PICTURE FRAMER, HSTROPN, CMP #### [facility] [address] [place] [address] Dr. Thomas Reina EGFR-NON AF ARMENIAN >60 Normal >=60 [facility] Comment on above: Performed By: #### B PICTURE FRAMER, HSTROPN, CMP #### [facility] [address] [place] [address] Dr. Thomas Reina Globulin (S) [Mass/Vol] 5.6 g/dL Normal [facility] Comment on above: Performed By: #### B PICTURE FRAMER, HSTROPN, CMP #### [facility] [address] [place] [address] Dr. Thomas Reina Glucose [Mass/Vol] 182 mg/dL Critically high 74-106 [facility] Comment on above: Performed By: #### B PICTURE FRAMER, HSTROPN, CMP #### [facility] [address] [place] [address] Dr. Thomas Reina Potassium [Moles/Vol] 3.6 mmol/L Normal 3.4-5.0 [facility] Comment on above: Performed By: #### B PICTURE FRAMER, HSTROPN, CMP #### [facility] [address] [place] [address] Dr. Thomas Reina Protein [Mass/Vol] 8.4 g/dL Critically high 6.1-8.2 [facility] Comment on above: Performed By: #### B PICTURE FRAMER, HSTROPN, CMP #### [facility] [address] [place] [address] Dr. Thomas Reina Sodium [Moles/Vol] 131 mmol/L Critically low 137-145 Th e [facility] Comment on above: Performed By: #### B PICTURE FRAMER, HSTROPN, CMP #### [facility] [address] [place] [address] Dr. Thomas Reina Urea nitrogen [Mass/Vol] 12.0 mg/dL Normal 9.0-20.0 [facility] Comment on above: Performed By: #### B PICTURE FRAMER, HSTROPN, CMP #### [facility] [address] [place] [address] Dr. Thomas Reina Urea nitrogen/Creatinine [Mass ratio] 12.4 mg/mg Normal [facility] Comment on above: Performed By: #### B PICTURE FRAMER, HSTROPN, CMP #### [facility] [address] [place] [address] Dr. Thomas Reina PROTIMEon 08-22-2021 INR Coag (PPP) [Relative time] 1.11 {INR} Normal [facility] Comment on above: Performed By: #### L IPA #### [facility] [address] [place] [address] Dr. Thomas Reina INR GUIDELINES SEE BELOW Normal [facility] Comment on above: Result Comment: ALBIN RED INR: 2.0 - 3.0 CONDITIONS NOT LISTED BELOW 2.5 - 3.5 FOR PROSTHETIC HEART VALVE REPLACEMENT 2.5 - 3.5 RECURRENT THROMBOSIS Performed By: #### L IPA #### [facility] [address] [place] [address] Dr. Thomas Reina PT Coag (PPP) [Time] 11.9 s Critically high 9.0-11.6 [facility] Comment on above: Performed By: #### L IPA #### [facility] [address] [place] [address] Dr. Thomas Reina PTTon 08-22-2021 aPTT Coag (Bld) [Time] 28.8 s Normal 22.3-36.2 [facility] Comment on above: Performed By: #### L ACT #### [facility] [address] [place] [address] Dr. Thomas Reina SALICYLATEon 08-22-2021 SALICYLATE <1.0 Normal <=20.0 [facility] Comment on above: Performed By: #### S ALYC, ACET, ETH #### [facility] [address] [place] [address] Dr. Thomas Reina TROPONIN, HIGH SENSITIVITYon 08-22-2021 HSTROP 7.1 pg/mL Normal 4.0-42.2 [facility] Comment on above: Result Comment: CUT- OFF POINTS HAVE BEEN ESTABLISHED BASED ON THE FOURTH UNIVERSAL DEFINITIONS OF MYOCARDIAL INFARCTION. THE UPPER REFERENCE LIMIT (URL) OF TROPONIN, DEFINED THE 99TH PERCENTILE OF cTnI DISTRIBUTION IN A REFERENCE POPULATION, HAS BEEN CONFIRMED THE DECISION THRESHOLD FOR [place] DIAGNOSIS. Performed By: #### B PICTURE FRAMER, HSTROPN, CMP #### [facility] [address] [place] [address] Dr. Thomas Reina URINE MICROSCOPIC ONLYon BACTERIA TRACE Abnormal NONE SEEN [facility] Comment on above: Performed By: #### C BC #### [facility] [address] [place] [address] Dr. Thomas Reina Bacteria identified Cx Nom (U) NOT INDICATED Normal [facility] Comment on above: Performed By: #### C BC #### [facility] [address] [place] [address] Dr. Thomas Reina CAST NONE SEEN Normal NONE SEEN [facility] Comment on above: Performed By: #### C BC #### [facility] [address] [place] [address] Dr. Thomas Reina Crystals LM Nom (Urine sed) NONE SEEN Normal NONE SEEN [facility] Comment on above: Performed By: #### C BC #### [facility] [address] [place] [address] Dr. Thomas Reina Epithelial cells LM Ql (Urine sed) RARE Normal NONE SEEN /RARE [facility] Comment on above: Performed By: #### C BC #### [facility] [address] [place] [address] Dr. Thomas Reina MUCOUS TRACE Abnormal NONE SEEN [facility] Comment on above: Performed By: #### C BC #### [facility] [address] [address] [address] Thomas Reina RBC 0-2 Normal 0-2 [facility] Comment on above: Performed By: #### C BC #### [facility] [address] [id number] [address] Thomas Reina WBC 0-2 Abnormal NONE SEEN [facility] Comment on above: Performed By: #### C BC #### [facility] [address] [address] [address] Thomas Reina US SINGLE QUAD RT [...] DEANDRA RAVI Date: 2021-08-22 14:38 Normal [facility] Vital Signs Date Time Vital Sign Value Performing Clinician Facility 07-27-2024 09:03-0400 Blood Pressure Location JANIA STEWART [facility] 07-27-2024 09:03-0400 Diastolic blood pressure 82 mm[Hg] JANIA STEWART [facility] 07-27-2024 09:03-0400 Systolic blood pressure 130 mm[Hg] JANIA WILLIAM [facility] 06-01-2024 09:59-0400 Body height 167.64 cm MD Pat Vance Work Phone: [facility] 06-01-2024 09:59-0400 Body mass index (BMI) [Ratio] 32.8 kg/m2 MD Pat Vance Work Phone: [facility] 06-01-2024 09:59-0400 Body weight 92.07 kg MD Pat Vance Work Phone: [facility] 06-01-2024 09:59-0400 Diastolic blood pressure 86 mm[Hg] MD Pat Vance Work Phone: [facility] 06-01-2024 09:59-0400 Heart rate 66 /min MD Pat Vance Work Phone: [facility] 06-01-2024 09:59-0400 Systolic blood pressure 145 mm[Hg] MD Pat Vance Work Phone: [facility] 08-05-2022 14:20-0400 Body height 170.18 cm Edel Franklin Other [employer] [facility] [employer] Other 08-05-2022 14:20-0400 Body mass index (BMI) [Ratio] 29.25 kg/m2 Edel Franklin Other [employer] Other 08-05-2022 14:20-0400 Body temperature 98.3 [degF] Edel Franklin Other [employer] Other 08-05-2022 14:20-0400 Body weight 84.73 kg Edel Franklin Other [employer] Other 08-05-2022 14:20-0400 Diastolic blood pressure 88 mm[Hg] Edel Franklin Other [employer] Other 08-05-2022 14:20-0400 Respiratory rate 18 /min Edel Franklin Other [employer] Other 08-05-2022 14:20-0400 SaO2% (BldA) [Mass fraction] 98 % Edel Franklin Other [employer] Other 08-05-2022 14:20-0400 Systolic blood pressure 152 mm[Hg] Edel Franklin Other [employer] Other 01-30-2022 09:30-0400 Body height 170.18 cm Robert Olexa Other [employer] Other 01-30-2022 09:30-0400 Body mass index (BMI) [Ratio] 29.75 kg/m2 Robert Olexa Other [employer] Other 01-30-2022 09:30-0400 Body weight 86.18 kg Robert Olexa Other [employer] Other 10-18-2021 10:45-0500 Body height 170.18 cm Nithin Bonds Other [employer] Other 10-18-2021 10:45-0500 Body mass index (BMI) [Ratio] 29.91 kg/m2 Nithin Bonds Other [employer] Other 10-18-2021 10:45-0500 Body temperature 97.1 [degF] Nithin Bonds Other [employer] Other 10-18-2021 10:45-0500 Body weight 86.64 kg Nithin Bonds Other [employer] Other 10-18-2021 10:45-0500 Diastolic blood pressure 68 mm[Hg] Nithin Bonds Other [employer] Other 10-18-2021 10:45-0500 Respiratory rate 20 /min Nithin Bonds Other [employer] Other 10-18-2021 10:45-0500 SaO2% (BldA) [Mass fraction] 98 % Nithin Bonds Other [employer] Other 10-18-2021 10:45-0500 Systolic blood pressure 110 mm[Hg] Nithin Bonds Other [employer] Other 10-05-2021 15:15-0500 Body height 170.18 cm John Banda Other [employer] Other 10-05-2021 15:15-0500 Body mass index (BMI) [Ratio] 29.13 kg/m2 John Banda Other [employer] Other 10-05-2021 15:15-0500 Body temperature 98.4 [degF] John Banda Other [employer] Other 10-05-2021 15:15-0500 Body weight 84.37 kg John Banda Other [employer] Other 08-16-2021 17:15-0400 Body height 170.18 cm Marisol Powers Other [employer] Other 08-16-2021 17:15-0400 Body mass index (BMI) [Ratio] 29.75 kg/m2 Marisol Powers Other [employer] Other 08-16-2021 17:15-0400 Body temperature 97.4 [degF] Marisol Powers Other [employer] Other 08-16-2021 17:15-0400 Body weight 86.18 kg Marisol Powers Other [employer] Other 08-16-2021 17:15-0400 Respiratory rate 18 /min Marisol Powers Other [employer] Other 08-16-2021 17:15-0400 SaO2% (BldA) [Mass fraction] 97 % Marisol Powers Other [employer] Other Encounters Encounter Date Encounter Type Care Provider Facility Start: 08-10-2024 End: 08-10-2024 ambulatory MD JANIA WILLIAM Facility:[facility] Start: 08-10-2024 End: 08-10-2024 Patient encounter procedure JANIA WILLIAM [facility] Start: 08-03-2024 End: 08-03-2024 ambulatory MD JANIA WILLIAM Facility:[facility] Start: 08-03-2024 End: 08-03-2024 Patient encounter procedure JANIA WILLIAM [facility] Start: 07-27-2024 End: 07-27-2024 ambulatory MD JANIA WILLIAM Facility:[employer] Start: 07-27-2024 End: 07-27-2024 Patient encounter procedure JANIA WILLIAM [facility] Start: 07-23-2024 End: 07-23-2024 ambulatory LM SANTACRUZ Facility: [facility] Start: 07-23-2024 End: 07-23-2024 Patient encounter procedure LM SANTACRUZ [facility] Start: 06-03-2024 ambulatory MD JANIA WILLIAM Facility:[facility] Start: 06-01-2024 End: 06-01-2024 ambulatory MD Pat Vance Work Phone: [facility] Work Phone: Start: 06-01-2024 End: 06-01-2024 Patient encounter procedure MD Pat Vance Work Phone: [facility] Work Phone: Start: 07-09-2023 End: 07-09-2023 ambulatory Pat Vance Other [employer] Other Start: 07-09-2023 Telephone encounter Pat Vance [facility] Start: 08-05-2022 End: 08-05-2022 ambulatory Edel Franklin Other [employer] Other Start: 08-05-2022 Office outpatient visit 15 minutes Edel Franklin [facility] Start: 01-30-2022 End: 01-30-2022 ambulatory Robert Espinoza Other [employer] Other Start: 01-30-2022 Office outpatient visit 15 minutes Robert Espinoza [facility] Start: 01-16-2022 End: 01-16-2022 ambulatory Robert Olexa Other [employer] Other Start: 01-16-2022 Office outpatient ne w 30 minutes Robert Espinoza [facility] Start: 10-18-2021 End: 10-18-2021 ambulatory Nithin Bonds Other [employer] Other Start: 10-18-2021 Office outpatient visit 25 minutes Nithin Bonds [facility] Start: 10-05-2021 End: 10-05-2021 ambulatory John Banda Other [employer] Other Start: 10-05-2021 Office outpatient visit 25 minutes John Banda [facility] Start: 09-05-2021 End: 09-07-2021 Evaluation and management of inpatient DR NONE LISTED REQUEST Facility: Start: 08-22-2021 End: 08-23-2021 ambulatory [facility] Facility: Start: 08-16-2021 (URG) Urgent Care Visit Marisol Powers [facility] Procedures Date Procedure Procedure Detail Performing Clinician Arthroplasty JANIA CASEY -AMABRAHANRA Insertion of hip prosthesis JANIA NKANSSUZANNA-AMANKRA Procedure on rectum JANIA NKANSAH-AMANKRA Plan of Treatment Date Care Activity Detail Author Start: 06-01-2024 Patient referral [facility] Work Phone: Start: 06-01-2024 EKG 12 channel panel [facility] Patient referral [facility] Work Phone: Immunizations Immunization Date Immunization Notes Care Provider Yasmin flynn 08-06-2020 influenza virus vaccine, unspecified formulation MD Pat Vance Work Phone: [facility] 08-25-2018 tetanus toxoid, redu shane diphtheria toxoid, and acellular pertussis vaccine, adsorbed MD Pat Vance Work Phone: [facility] 08-24-2018 diphtheria, tetanus toxoids and acellular pertussis vaccine, unspecified formulation MD Pat Vance Work Phone: [facility] Payers Date Payer Category Payer Self-pay [id number] 1965 Unknown [id number] 2.16.84 [id number] 1965 Unknown [id number] 2.16.84 [id number] 1965 Unknown [id number] 2.16.8 [id number] 1967 Unknown [id number] 2.16.8 [id number] 1967 Unknown [id number] 2.16.8 [id number] 1967 Unknown [id number] 2.16.8 [id number] 1959 Unknown [id number] Unknown [id number] 2.16.8 [id number] Social History Date Type Detail Facility Sex Assigned At [facility] Start: 09-12-2021 End: 07-27-2024 Tobacco smoking status NHIS Never smoked tobacco (finding) [facility] Start: 1965 Sex Assigned At Male [facility] Tobacco smoking status No Smokin g Status Entered [facility] Functional Status Date Assessment Result Facility 07-27-2024 Functional Status N/A [facility] Clinical Notes 08-06-2021 to 07-27-2024 Note Date & Type Note Facility 07-27-2024 Hospital Discharge instructions Follow Up Care 07/27/2024 12:44:27 With:STEWART TAYLOR, JANIA, URL Address: When: Unknown [facility] 07-27-2024 Hospital Discharge instructions Patient Education [...] including vitamins, herbs, eye drops, creams, and kblt-umb-[id number] medicines. This also includes: ?Medicines to assist [...] provider. Document Revised: 02/21/2022 Document Reviewed: 02/21/2022 [employer] Patient Education 2023 [employer]. Follow Up Care 07/23/2024 13:38:07 With:STEWART TAYLOR, JANIA, SRINIVASAN Address: When: Unknown [facility] 07-27-2024 Note Patient Education Oncology Prostate-Specific Antigen [...] including vitamins, herbs, eye drops, creams, and cyvk-kup-npvkllh medicines. This also includes: ? Medicines to [...] sure you disc (more content not included)... [facility] 08-05-2022 Evaluation note Encounter Date Diagnosis Assessment Notes Jul, Tooth infection (ICD-10 - K04.7) Take medications as directed.Highly encourage patient to contact dentist SOFI for further treatment of infection. 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 Continue gentle motion and strengthening exercises. [employer] Other 03-22-2022 Evaluation note* Encounter Date Diagnosis [...] be performed daily, multiple times per day. [employer] Other 12-22-2021 Evaluation note* Encounter Date Diagnosis Assessment Notes Treatment Notes Treatment Clinical Notes Sep, Empyema (ICD-10 - J86.9) Given clinical and radiographic improvement no need for further x-ray or CT evaluation, will evaluate already with development of symptoms. Otherwise he will be seen here on an as-needed basis Sep, Pneumonia of right lower lobe due to infectious organism (ICD-10 - J18.9) [employer] Other 10-20-2021 Evaluation note* Encounter Date Diagnosis [...] Patient care instructions given in writting by [facility] Care At Home document. 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 Medical History empyema lung Medical History enlarged prostate Medical History COVID X 1 YEAR AGO Surgical History Left Hip Replacement 2019 Surgical History appendectomy Hospitalization History see above Hospitalization History INFECTION IN LUNG FROM A TOOTH INFECTION AFTER COVID [employer] Other Evaluation + Plan note Future Appointments Appointment Date:07/27/2024 08:45:00 AM Scheduled Provider:JANIA WILLIAM MD Location:[facility] Appointment Type:URO New Patient [facility] evaluation + Plan note Future Appointments Appointment Date:08/03/2024 09:30:00 AM Scheduled Provider:JANIA WILLIAM MD Location:[facility] Appointment Type:URO Office Visit Diagnostic Tests Pending * PSA Total 07/27/24 [facility] Evaluation + Plan note Future Appointments Appointment Date:08/10/2024 08:00:00 AM Scheduled Provider:JANIA WILLIAM MD Location:[facility] Appointment Type:URO Office Visit [facility] Evaluation noteNo[employer] Other Evaluation noteNo InformationSaltlick Labs [employer] Other Evaluation note* Diagnosis Onset Date Resolution Status Abnormal heart rate acute HTN (hypertension) acute Peyronie's disease acute [facility] Work Phone: History general Narrative - Reported* Type Description Date Medical History Hypertension 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 Surgical History Left Hip Replacement 2020 Hospitalization History see above [employer] Other History general Narrative - Reported* Type Description Date Medical History Hypertension 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 Medical History empyema lung Medical History enlarged prostate Surgical History Left Hip Replacement 2019 Surgical History appendectomy Hospitalization History see above [employer] Other Hisgwby general Narrative - [facility] [employer] Other Hospital course Narrative No data available for this section [facility] Discharge instructions No data available for this section [facility] progress note No data available for this section [facility] Summary Purpose Family History Relationship Condition Age [...] and content) DATE CREATED AUTHOR 09/26/2021 [facility] DATE CREATED AUTHOR AUTHOR'S ORGANIZ ATION 06/02/2024 [facility] DATE CREATED AUTHOR AUTHOR'S ORGANIZ ATION 08/11/2024 [facility] REASON FOR VISIT (unrecogniz ed section and content) #30 WILSON RAHUL TRUCK, COUGH, [place], COVID EXPOSURE5 wk hosp f/u EmpyemaBilateral Knee PainLeft Knee PainTOOTH PAIN SWOLLEN JAWRefill Care Teams (unrecognized sec tion and content) Personnel Name: PAT VANCE MD Address: Address: [address] [place] [address] Team Status: Active Member Role Status Dates [...] BE BASED ON THE PRIMARY CLINICAL RECORDS. [employer] provides no warranty or guarantee of the accuracy or completeness of information in this document.
[2024-12-05 04:06] LABS: HBsAg Screen Negative (Negative); HCV Ab Non Reactive (Non Reactive); Hep A Ab, IgM Negative (Negative); Hep B Core Ab, IgM Negative (Negative); Hep B Surface Ab Non Reactive (.)
[2024-12-07 14:07] LABS: QuantiFERON-TB Gold Plus Negative (Negative)
== END 2024-12-04 07:31 | disposition home or self-care (01) ==
LOC: LAB 07:32
PROVIDERS: PCP Family Medicine
DX: L10.0 Pemphigus vulgaris (principal); Z79.899 Other long term (current) drug therapy
CPT/HCPCS: 36415; 80074; 86480; 86706

== ENCOUNTER 2024-12-10 09:44 | Outpatient (RCR) | payer BC, SELFPAY ==
[2024-12-10 10:09] VITALS: BP 162/96; PULSE 78; TEMP 36.7; O2SAT 96
[2024-12-10] MEDS: METHYLPREDNISOLONE SOD SUCC PF 125 MG/2 ML VIAL IV (10:18)
[2024-12-10] MEDS: DIPHENHYDRAMINE HCL 25 MG CAPSULE 50 MG PO (10:19)
[2024-12-10] MEDS: ACETAMINOPHEN 325 MG TABLET 650 MG PO (10:19)
[2024-12-10] MEDS: SODIUM CHLORIDE 0.9% IV (10:56)
[2024-12-10] MEDS: RITUXIMAB IV (10:56)
[2024-12-10 14:42] VITALS: BP 127/75; PULSE 67; O2SAT 95
== END 2024-12-25 23:59 | disposition home or self-care (01) ==
LOC: INF 09:44
PROVIDERS: PCP Family Medicine
DX: L10.0 Pemphigus vulgaris (principal)
CPT/HCPCS: 96375; J2919; J9312

== ENCOUNTER 2024-12-28 07:32 | Outpatient (RCR) | payer BC, SELFPAY ==
[2024-12-28 10:45] VITALS: BP 150/88; PULSE 66; TEMP 36.7; O2SAT 97
[2024-12-28] MEDS: ACETAMINOPHEN 325 MG TABLET 650 MG PO (10:49)
[2024-12-28] MEDS: METHYLPREDNISOLONE SOD SUCC PF 125 MG/2 ML VIAL IV (10:50)
[2024-12-28] MEDS: DIPHENHYDRAMINE HCL 25 MG CAPSULE 50 MG PO (10:50)
[2024-12-28] MEDS: RITUXIMAB IV (11:13)
[2024-12-28] MEDS: SODIUM CHLORIDE 0.9% IV (11:13)
--- NOTE | 2024-12-28 11:29 | PC.NURSE ---
1125 Iv rituxin initiated according to protocol.
[2024-12-28 12:28] VITALS: BP 131/82; PULSE 60; TEMP 36.4; O2SAT 96
--- NOTE | 2024-12-28 13:08 | PC.NURSE ---
Tolerating infusion without any s/s of reactions. Patient up to bathroom. meal ordered. present at this time
== END 2024-12-29 08:06 | disposition home or self-care (01) ==
LOC: INF 07:32
PROVIDERS: PCP Family Medicine
DX: L10.0 Pemphigus vulgaris (principal)
CPT/HCPCS: 96375; 96413; 96415; J2919; J9312